=== PATIENT | male | born 1970 | race Caucasian/White ===

== ENCOUNTER → 2018-02-25 | Outpatient (CLI) | payer BC ==
--- NOTE | 2018-02-25 12:29 | DIAGNOSTIC IMAGING REPORT ---
CHEST 2 VIEWS ROUTINE HISTORY: 47 years-old Male R05 [id number] acute cough COMPARISON: None available TECHNIQUE: PA and lateral views of the chest FINDINGS: Cardiac mediastinal and hilar silhouettes are within normal limits. No pneumothorax, pleural effusion, focal airspace consolidation or overt pulmonary edema. Bones of the chest appear grossly intact. IMPRESSION: No acute process. The above report was generated using voice recognition software. It may contain grammatical, syntax or spelling errors. Electronically signed by: Diallo Champion M.D. 02/25/2018 12:27 PM Dictated Date/Time: 02/25/2018 12:27 PM
== END | disposition home or self-care (01) ==
LOC: C.RAD1850 12:01
PROVIDERS: ATTEND Internal Medicine Pulmonary Disease
DX: R05 Cough (principal)

== ENCOUNTER 2024-10-30 16:17 | Inpatient (IN) ==
[2024-10-30 16:55] LABS: Basophils # (auto) 0.08 K/uL (0.00-0.20); Basophils % (auto) 0.4 %; Eosinophils # (auto) 0.23 K/uL (0.00-0.50); Eosinophils % (auto) 1.1 %; Hematocrit (blood only) 33.6 % (37.0-47.0); Hemoglobin 11.2 g/dl (12.0-16.0); Immature Granulocytes # (auto) 0.17 K/uL (0.01-0.20); Immature Granulocytes % (auto) 0.8 %; Lymphocytes # (auto) 3.32 K/uL (1.20-3.40); Lymphocytes % (auto) 15.9 %; Mean Corpuscular Hemoglobin 27.9 pg (25.0-34.0); Mean Corpuscular Hgb Conc 33.3 g/dL (32.0-36.0); Mean Corpuscular Volume 83.8 fL (80.0-100.0); Mean Platelet Volume 10.1 fL (9.4-12.4); Monocytes # (auto) 1.61 K/uL (0.11-0.59); Monocytes % (auto) 7.7 %; Neutrophils % (auto) 74.1 %; Platelet Count 404 K/uL (130-400); RDW Coefficient of Variation 14.9 % (11.5-14.5); RDW Standard Deviation 45.8 fL (36.4-46.3); Red Blood Count 4.01 M/uL (4.20-5.40); White Blood Count 20.91 K/ul (4.8-10.8)
[2024-10-30 17:14] LABS: Alanine Aminotransferase 18 U/L (7-52); Albumin Globulin Ratio 1.5 (0.9-2); Albumin Level 4.1 gm/dl (3.4-5.0); Alkaline Phosphatase 72 U/L (34-104); Anion Gap 10 (3-11); Aspartate Aminotransferase 15 U/L (13-39); BUN Creatinine Ratio 19.4 (10-20); Blood Urea Nitrogen 12 mg/dl (6-23); Calcium 8.9 mg/dl (8.6-10.3); Carbon Dioxide 23 mmol/L (21-32); Chloride 103 mmol/L (98-107); Globulin 2.7 gm/dl (2.5-4.0); Glucose 210 mg/dl (70-99(Fasting)); Potassium 3.5 mmol/L (3.5-5.1); Sodium 136 mmol/L (136-145); Total Protein 6.8 gm/dl (6.0-8.3)
[2024-10-30 17:19] LABS: Troponin I High Sensitivity 3.8 pg/ml (0-14)
[2024-10-30 17:24] LABS: INR 0.9 (0.9-1.1); Partial Thromboplastin Ratio 0.8; Partial Thromboplastin Time 22 Seconds (21-31); Prothrombin Time 10.3 Seconds (9.0-12.0)
--- NOTE | 2024-10-30 17:43 | Emergency Department Note ---
Impression & Plan Abnormal vaginal bleeding, Syncope, Anemia ED Provider Note ED Provider Note NAME: DENIA REYES AGE:53 SEX: Female : 1970 ARRIVES VIA: Private vehicle INFORMANT: Patient ED PROVIDER(s): Honey Pierre DO CHIEF COMPLAINT: Persistent vaginal bleeding, syncope HPI: This is a 53-year-old female who presents emergency ferment due to concern for ongoing vaginal bleeding and a syncopal event today at home. Patient was seen and evaluated here yesterday. Patient originally had been scheduled with Dr. Woodard of [facility] for a D&C however anesthesia would not clear her due to questionable neck problems and required she get an outpatient MRI. This is scheduled for Saturday. Patient was complicated ongoing medical problems that she states no one can figure out why she has ongoing pain and she has been seen by several specialists including rheumatology. Patient states she has been feeling weak since the abnormal vaginal bleeding started the beginning of the week. She states she is passing clots the size of her fist. She states she does have lower abdominal pain however now since the episode of passing out at home also has pain to her right neck and right shoulder. She states she was standing at the time talking with a friend and began to feel weak, lightheaded, and nauseated and the next thing she knew she was waking up on the floor. Friend at bedside states she lost consciousness, fell into a door before hitting the ground, and was unresponsive for approximately 1 minute. No seizure-like activity noted. No cyanosis. Patient states she did have a little bit to eat today, and a check of her blood sugar initially was reassuring. She states she does have a history of vagally mediated problems, but is never passed out before. She has previously had a cardiac evaluation with Dr. Evans that was reassuring. She did have a normal bowel movement this morning, no change in urine, no fevers or chills. Patient also states her tongue feels numb on the left. She denies tasting any blood or noting any chipped or broken teeth following the fall. PAST MEDICAL HISTORY:See Below PAST SURGICAL HISTORY:See Below FAMILY HISTORY:See Below SOCIAL HISTORY:See Below HOME MEDICATIONS:See Below ALLERGIES:See Below VITALS:See Below PHYSICAL EXAMINATION: GENERAL: alert, well appearing, well nourished, no distress, non-toxic HEAD: nc/at, no evidence of facial trauma EYE EXAM: normal conjunctiva, PERRL and EOM's grossly intact OROPHARYNX: no exudate, no erythema, lips, buccal mucosa, and tongue normal and mucous membranes are moist NECK: supple, no nuchal rigidity, no adenopathy, non-tender LUNGS: Clear to auscultation. Normal chest wall mechanics, no w/r/r HEART: no murmurs, S1 normal and S2 normal ABDOMEN: abdomen soft, non-tender, normo-active bowel sounds, no masses, no rebound or guarding. BACK: Back is symmetrical on inspection and there is no deformity, no midline tenderness, no CVA tenderness. SKIN: no rashes, petechiae, orbruising UPPER EXTREMITIES: upper extremities are grossly normal. FROM, nml pulses b/l. No evidence of trauma or deformity. LOWER EXTREMITIES: No pitting edema. FROM, nml pulses b/l. NEURO EXAM: Normal sensorium, cranial nerves II-XII grossly intact, normal speech, no facial droop,nogross weakness of arms, no gross weakness of legs. Gross sensation intact. No ataxia. Vital Signs: reviewed and remarkable Differential Diagnosis: vasovagal event, infection, hypoglycemia, electrolyte abnormalities, toxidrome, substance abuse, dysrhythmia, ACS, as well as others were entertained. MEDICAL DECISION MAKING: This is a 53-year-old female who presents emergency department due to concern for syncopal event the day as well as persistent dizziness and weakness in the setting of ongoing vaginal bleeding. Patient previously seen and evaluated here for vaginal bleeding and did have ultrasound and pelvic exam performed. Case was discussed with [facility] and patient refused their initial recommendation of Aygestin. Patient was previously scheduled to have a D&C however required further evaluation prior to anesthesia clearance. Patient continues to have ongoing bleeding and presents to the ER today following a syncopal event at home. Labs drawn and sent, IV established, EKG and xrays performed at bedside interpreted me and patient monitored on telemetry. She was sent for CT of the head and C-spine to rule out traumatic injury due to complaints of pain following the event. I discussed all results with her at bedside. Patient's H&H is downtrending compared to those yesterday. Patient was initially tachycardic however improved here and was given a liter of IV fluids and tolerated p.o. Patient was persistently weak, dizzy, and off balance when trying to stand and go to the bathroom. Repeat H&H and repeat troponin drawn and sent after several hours of monitoring. No ectopy or dysrhythmia noted. Repeat troponin negative, and H&H still downtrending. Case discussed again via [place] text with on-call [facility]. No indication for blood transfusion at this time and no indication for more urgent operative intervention. Patient continues to decline Aygestin recommendation. Due to concern for persistent orthostatic symptoms and worsening anemia, case discussed with the hospitalist team additionally. At this time I have a low suspicion for any occult traumatic injury related to the fall that occurred during her syncopal event. I do not suspect occult cardiac etiology. I suspect her syncopal event was likely orthostatic and vasovagal in nature. Patient uncomfortable returning home due to persistent symptoms despite reporting that her bleeding seem to be slowing while monitored here in the emergency department. Consultation(s): 2319: Discussed with Dr. Burns, [facility], via [place] text. 2344: Discussed with Dr. Roe, [facility] hospitalist team, for additional evaluation and management. ER Treatment Provided: See below Diagnostics Interpreted By Me: -ECG: Sinus tachycardia 115, normal axis, normal intervals, no acute ST/T wave changes -Cardiac Monitoring: An order was placed for continuous cardiac monitoring. The monitor shows a rate of 102 with sinus tachycardia rhythm. -Laboratory studies: As stated above and show below. -Imaging studies: ct head: no ich Triage Nursing Note Reviewed Prior/Outside Records Reviewed -prior pelvic ultrasound reviewed Past Med/Surg History Problem List (Updated 11/01/24 @ 01:14 by Honey Pierre DO) Anemia (Acute) Acute blood loss anemia Syncope (Acute) Abnormal vaginal bleeding (Acute) Dysfunctional uterine bleeding (Acute) Encounter for pre-operative examination Pre-diabetes Dyslipidemia Migraines Jasmeet's disease (Chronic) Hypothyroidism (Chronic) Palpitations Endometriosis (Acute) GINGER (generalized anxiety disorder) (Acute) Hypertension (Acute) Gastric reflux Medical History Rectocele w/"slight" uterine prolapse Neck problem see below in plan Mast cell activation syndrome Dx by [employer], reports intermittent episodes without clear trigger of HTN (up to 200/150 per pt), tachycardia, nausea, and dizziness lasting 15 minutes-3 hours-notes improvement since starting current combination of supplements Family history of pseudocholinesterase deficiency maternal aunt; pt has not been tested or had any reactions Hypertension controlled, stable per pt Gastric reflux controlled, stable per pt Palpitations occasional, chronic GINGER (generalized anxiety disorder) Pre-diabetes diet History of tachycardia cardiac work up negative - still gets occasional - unsure of cause - follows with Cristina Jasmeet's disease Hypothyroidism Hx of migraines occasional / varies Surgical History Hx of wisdom tooth extraction Hx of esophagogastroduodenoscopy Hx of colonoscopy S/P LEEP of cervix S/P ovarian cystectomy History of laparoscopy Hx of tonsillectomy (1999) Family History Mother COPD (chronic obstructive pulmonary disease) Lung cancer Rheumatoid arthritis Hypertension Aortic aneurysm Father , 65 of [place] Heart disease Hypertension Migraines Myocardial infarction Aunt Pseudocholinesterase deficiency Other No pertinent family history Thyroid disease Social History Smoking Status: Never smoker Second Hand Exposure: Yes (hx); Do You Dip or Chew Tobacco: No; Hx Alcohol Use: Yes Alcohol type: wine Alcohol Intake Frequency Comment: Occasional Hx Substance Use: No Preferred Language: Yakut Communication Ability: Effective Web Site Developer Required: No Beliefs That Will Affect Care: None marital status: Current Living Situation: Spouse current occupational status: employed 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 Verified 10/30/24 23:43 happened in childhood polymyxin B Allergy Unknown unkown. Verified 10/30/24 23:43 happened in childhood tetracycline Allergy Unknown Unknown Verified 10/30/24 23:43 Serotonin 5HT-3 Antagonists AdvReac Severe HYPERACTIVI Verified 10/31/24 00:36 TY succinylcholine AdvReac Severe STRONG Verified 10/30/24 23:43 [From Anectine] FAMILY HX--INTOLERANT-CAUSED TEMPORARY PARALYSIS Home Meds Home Medications Medication Instructions Recorded Confirmed alprazolam 0.25 mg tablet (Xanax) 0.25 mg PO BID PRN anxiety 07/07/19 10/30/24 fexofenadine 60 mg tablet (Rosa 60 mg PO Q12H PRN Congestion 06/07/22 10/30/24 Allergy) vitamin D3 25 mcg (1,000 unit)-vit 1 tab PO QAM 12/23/23 10/26/24 K2 90 mcg disintegrating tablet Active B12 Folate 1 tab PO QAM 07/15/24 10/26/24 Dimethyl Glycine 1 tab PO QAM 07/15/24 10/26/24 Gi Complete 1 packet PO DAILY 07/15/24 10/26/24 amlodipine 5 mg tablet 7.5 mg PO QPM 07/15/24 10/30/24 Probzyme 2 tab PO UD PRN Constipation 10/16/24 10/26/24 Relax 2 - 4 tab PO DAILY PRN muscle 10/16/24 10/26/24 spasms Spm Liquid 1 tbsp PO QAM 10/16/24 10/26/24 diphenhydramine HCl 25 mg capsule 25 mg PO TID PRN histamine reaction 10/16/24 10/30/24 (Benadryl) levothyroxine 50 mcg tablet 50 mcg PO QAM 10/16/24 10/30/24 quercetin 1 tab PO QAM 10/16/24 10/26/24 omega 5-pds-noh-fish oil 900 1 cap PO DAILY 10/26/24 10/30/24 mg-1,400 mg capsule,delayed release gpenodj-olrtarflnfelw-pmuocfko 250 1 tab PO Q6H PRN HEADACHES 10/30/24 10/30/24 mg-250 mg-65 mg tablet (Excedrin Migraine) Previous Rx's Medication Instructions Recorded meclizine 12.5 mg tablet 12.5 mg PO TID PRN dizziness #20 06/02/24 tabs Results & Data (ED) Vital Signs Vital Signs - 24 hr 10/30/24 16:22 10/30/24 16:59 10/30/24 16:59 Temperature 36.7 C Temperature Source Temporal Artery Scan Pulse Rate 135 H Respiratory Rate 22 Blood Pressure 138/89 Blood Pressure Mean 105 Pulse Oximetry 100 100 Oxygen Delivery Method Room Air Room Air Room Air Sepsis Recent Fever Within 48 Hours No Sepsis New/Unexplained Change in Mental Status N/A Sepsis Action Taken by Nursing Adv Provider Notified Laboratory Data 10/31/24 20:54 10/30/24 16:28 Lab Results 10/30/24 10/30/24 Range/Units 16:28 21:20 WBC 20.91 H 19.91 H (4.8-10.8) K/ul RBC 4.01 L 3.67 L (4.20-5.40) M/uL Hgb 11.2 L 10.2 L (12.0-16.0) g/dl Hct 33.6 L 31.2 L (37.0-47.0) % MCV 83.8 85.0 (80.0-100.0) fL MCH 27.9 27.8 (25.0-34.0) pg MCHC 33.3 32.7 (32.0-36.0) g/dL RDW Std Deviation 45.8 46.8 H (36.4-46.3) fL RDW Coeff of [place] 14.9 H 15.0 H (11.5-14.5) % Plt Count 404 H 345 (130-400) K/uL MPV 10.1 10.7 (9.4-12.4) fL Immature Gran % (Auto) 0.8 % Neut % (Auto) 74.1 % Lymph % (Auto) 15.9 % [place] % (Auto) 7.7 % Eos % (Auto) 1.1 % Baso % (Auto) 0.4 % Neut # (Auto) 15.50 H (1.40-6.50) K/uL Lymph # (Auto) 3.32 (1.20-3.40) K/uL [place] # (Auto) 1.61 H (0.11-0.59) K/uL Eos # (Auto) 0.23 (0.00-0.50) K/uL Baso # (Auto) 0.08 (0.00-0.20) K/uL Immature Gran # (Auto) 0.17 (0.01-0.20) K/uL PT 10.3 (9.0-12.0) Seconds INR 0.9 (0.9-1.1) APTT 22 (21-31) Seconds PTT Ratio 0.8 Sodium 136 (136-145) mmol/L Potassium 3.5 (3.5-5.1) mmol/L Chloride 103 (98-107) mmol/L Carbon Dioxide 23 (21-32) mmol/L Anion Gap 10 (3-11) BUN 12 (6-23) mg/dl Creatinine 0.62 (0.6-1.2) mg/dl Est Cr Clr Drug Dosing Not Reportable eGFR 107.75 BUN/Creatinine Ratio 19.4 (10-20) Glucose 210 H (70-99(Fasting)) mg/dl Calcium 8.9 (8.6-10.3) mg/dl Total Bilirubin 1.0 (0.2-1.0) mg/dl AST 15 (13-39) U/L ALT 18 (7-52) U/L Alkaline Phosphatase 72 (34-104) U/L Troponin I High Sens 3.8 5.2 (0-14) pg/ml Total Protein 6.8 (6.0-8.3) gm/dl Albumin 4.1 (3.4-5.0) gm/dl Globulin 2.7 (2.5-4.0) gm/dl Albumin/Globulin Ratio 1.5 (0.9-2) Urine Color [place] Urine Appearance Clear (Clear) Urine pH 8.0 H (4.5-7.5) Ur Specific [place] 1.013 (1.000-1.030) Urine Protein Negative (Negative) Urine Glucose (UA) Negative (Negative) Urine Ketones Negative (Negative) Urine Blood 3+ H (Negative) Urine Nitrite Negative (Negative) Urine Bilirubin Negative (Negative) Urine Urobilinogen Negative (Negative) Ur Leukocyte Esterase Negative (Negative) Urine WBC (Auto) 0-5 (0-5) /hpf Urine RBC (Auto) >20 H (0-2) /hpf U Hyaline Cast (Auto) 0-2 (0-2) /lpf U Epithel Cells (Auto) 0-2 (0-2) /hpf Urine Bacteria (Auto) None Seen (None Seen) Administered Medications Alprazolam (Alprazolam 0.25 Mg Tablet) 0.25 mg PO BID PRN PRN Reason: anxiety Stop: 11/30/24 02:49 Last Admin: 10/31/24 19:25 Dose: 0.25 mg Documented By: [id number] Amlodipine Besylate (Amlodipine Besylate 5 Mg Tab) 7.5 mg PO QPM DONALD Stop: 11/30/24 20:59 Last Admin: 10/31/24 21:53 Dose: 7.5 mg Documented By: ANTONIO Sodium Chloride (Nss) 1,000 mls @ 60 mls/hr IV .[id number] DONALD Stop: 11/01/24 12:44 Last Admin: 10/31/24 15:38 Dose: 60 mls/hr Documented By: ANTONIO Levothyroxine Sodium (Levothyroxine Sodium 50 Mcg Tablet) 50 mcg PO DAILYBB DONALD Stop: 11/30/24 06:29 Last Admin: 10/31/24 07:45 Dose: 50 mcg Documented By: PURVI Norethindrone (Norethindrone 5 Mg Tab) 5 mg PO QID DONALD Stop: 11/30/24 08:59 Last Admin: 10/31/24 21:53 Dose: 5 mg Documented By: Admin: 10/31/24 18:38 Dose: 5 mg Documented By: Admin: 10/31/24 13:10 Dose: 5 mg Documented By: Admin: 10/31/24 07:46 Dose: 5 mg Documented By: PURVI Discontinued Medications Amlodipine Besylate (Amlodipine Besylate 5 Mg Tab) 7.5 mg PO NOW STA Stop: 10/31/24 00:36 Last Admin: 10/31/24 00:39 Dose: 7.5 mg Documented By: MICHELLE Diphenhydramine HCl (Diphenhydramine 50 Mg/Ml Vial) 12.5 mg IV NOW STA Stop: 10/30/24 23:29 Last Admin: 10/30/24 23:41 Dose: 12.5 mg Documented By: MICHELLE Sodium Chloride (Nss) 1,000 mls @ 999 mls/hr IV .Q1H1M ONE Stop: 10/30/24 18:25 Last Infusion: 10/30/24 20:57 Dose: Infused Documented By: Admin: 10/30/24 17:54 Dose: 999 mls/hr Documented By: ALTHEA Ondansetron HCl (Ondansetron Inj 2 Mg/Ml 2 Ml Vial) 4 mg IV NOW STA Stop: 10/30/24 21:20 Last Admin: 10/30/24 21:26 Dose: 4 mg Documented By: JAYASHREEW Discharge Plan Visit Data Chief Complaint: Shortness of Breath/Dyspnea Stated Complaint: SYNCOPE, BLOOD CLOTS, SOB,NAUSEA ED Provider: Honey Pierre Discharge Problem: Abnormal vaginal bleeding, Syncope, Anemia Patient Disposition: Admitted As Inpatient Discharge Instructions Interventions: ED Discharge Assessment Last Done: 10/31/24 02:50
[2024-10-30] MEDS: SODIUM CHLORIDE 0.9% 1,000 ML IV ONE (17:54)
--- NOTE | 2024-10-30 18:41 | XRay Report ---
Chest radiograph, one view History: Chest pain Comparison: 06/02/2024 Findings: Single AP view of the chest performed. No focal consolidation or pleural effusion. No pneumothorax. The cardiomediastinal silhouette is within normal limits. Normal pulmonary vascularity. No evidence for lymphadenopathy. No visualized bony or soft tissue abnormality. Impression: Normal chest radiograph Electronically signed by Clinton Mcgarry 10-30-2024 6:40 PM
--- NOTE | 2024-10-30 18:45 | XRay Report ---
Study: Right humerus 2 view History: Pain Comparison: None Findings: There is no acute fracture or dislocation. Alignment is anatomic. Joint spaces are well maintained. There is no joint effusion or significant soft tissue swelling. Bone mineralization is normal. Impression: No acute bony abnormality Electronically signed by Clinton Mcgarry 10-30-2024 6:44 PM
--- NOTE | 2024-10-30 19:27 | CT Scan Report ---
EXAM: CT cervical spine wo con CLINICAL HISTORY: FALL, SYNCOPE EK/EB/JMP TECHNIQUE: CT scan of the cervical spine was performed without the administration of intravenous contrast. Contiguous axial images were obtained from the skull base to the upper thoracic spine. One of the following dose reduction techniques was utilized for this exam. Automated exposure control, adjustment of the mA and/or kV according to patient size, and use of iterative reconstruction. COMPARISON: No previous studies are available for comparison. FINDINGS: Vertebrae: The vertebral bodies are normal in height and alignment. No evidence of acute fracture or dislocation. The cortical and trabecular bone patterns are normal. No signs of lytic or sclerotic lesions. Normal configuration of the posterior elements. Intervertebral Discs: The intervertebral disc spaces are preserved. No evidence of significant disc bulging or herniation. No calcifications or ossifications were noted within the discs. Facet Joints: C5-6 right and C6-7 left facet arthropathy. Neural Foramina: The neural foramina are patent bilaterally at all levels. No evidence of foraminal narrowing or nerve root compression. Prevertebral Soft Tissues: The prevertebral soft tissues are normal in thickness without evidence of mass or abnormal fluid collection. Additional Findings: Right sphenoidal sinusitis. IMPRESSION: 1. C5-6 right and C6-7 left facet arthropathy. 2. Right sphenoidal sinusitis. 3. Correlate with clinical findings. Electronically signed by Jorge Tomlin 10-30-2024 7:27 PM
--- NOTE | 2024-10-30 19:39 | CT Scan Report ---
EXAM: CT head/brain wo con CLINICAL HISTORY: FALL, SYNCOPE EK/EB/JMP/ TECHNIQUE: An axial non-contrast CT scan of the brain was performed from the skull base to the high parietal region. One of the following dose reduction techniques were utilized for this exam: Automated exposure control, adjustment of the mA and/or kV according to patient size, use of iterative reconstruction. COMPARISON: None. FINDINGS: Brain Parenchyma: Normal attenuation of the cerebral hemispheres, cerebellum, and brainstem. No evidence of acute infarct, hemorrhage, or mass effect. No abnormal areas of hypo- or hyperattenuation. Ventricular System: Ventricles are normal in size and configuration. No evidence of hydrocephalus or ventricular enlargement. Subarachnoid Spaces: Normal sulci and cisterns. No evidence of subarachnoid hemorrhage or extra-axial fluid collections. Cerebellum and Brainstem: Normal size and signal. No masses, lesions, or areas of abnormal signal. Orbits: Normal appearance of the globes, optic nerves, and extraocular muscles. No evidence of orbital masses or abnormal signal. Sinuses: Right sphenoidal sinusitis. Mastoid Air Cells: Clear mastoid air cells. No evidence of mastoiditis. Skull: Normal skull morphology. IMPRESSION: 1. No definite acute intracranial pathology. 2. Right sphenoid sinusitis. 3. Correlate with clinical findings. Electronically signed by Jorge Tomlin 10-30-2024 7:37 PM
[2024-10-30] MEDS: ONDANSETRON INJ 2 MG/ML 2 ML VIAL IV STA (21:26)
[2024-10-30 21:40] LABS: Appearance Urine Clear (Clear); Bacteria Urine Automated None Seen (None Seen); Bilirubin Urine Negative (Negative); Blood Urine 3+ (Negative); Cast Urine Automated 0-2 /lpf (0-2); Color Urine Orange; Epithelial Cell Urine Auto 0-2 /hpf (0-2); Glucose Urine UA Negative (Negative); Ketones Urine Negative (Negative); Leukocyte Esterase Urine Negative (Negative); Nitrite Urine Negative (Negative); Protein Urine Negative (Negative); RBC Urine Automated >20 /hpf (0-2); Specific Gravity Urine 1.013 (1.000-1.030); Urobilinogen Urine Negative (Negative); WBC Urine Automated 0-5 /hpf (0-5)
[2024-10-30 22:04] LABS: Hematocrit (blood only) 31.2 % (37.0-47.0); Hemoglobin 10.2 g/dl (12.0-16.0); Mean Corpuscular Hemoglobin 27.8 pg (25.0-34.0); Mean Corpuscular Hgb Conc 32.7 g/dL (32.0-36.0); Mean Platelet Volume 10.7 fL (9.4-12.4); Platelet Count 345 K/uL (130-400); RDW Standard Deviation 46.8 fL (36.4-46.3); Red Blood Count 3.67 M/uL (4.20-5.40); White Blood Count 19.91 K/ul (4.8-10.8)
[2024-10-30] MEDS: diphenhydrAMINE 50 MG/ML VIAL IV STA (23:41)
[2024-10-31] MEDS: amLODIPine BESYLATE 5 MG TAB PO STA (00:39)
--- NOTE | 2024-10-31 00:39 | History & Physical Report ---
Date of Service October 31, 2024 Assessment & Plan (1) Abnormal vaginal bleeding: Plan: 53yo female with dysfunctional uterine bleeding. She had a pelvic ultrasound performed on 10/29/24 which revealed likely fibroid, thickened endometrium as well as possible clots. Patient has been followed by Gynecology - is planned to have a D&C and hysteroscopy performed this week. Patient reports her bleeding is starting to slow. Her Hgb has decreased from 13.9 on 10/29/23 --> 10.2 today. She was again offered Aygestin for the bleeding - reports that she does not respond well to hormones and would like to avoid this option. -Observation to medical with telemetry -Continue to monitor uterine bleeding - daily CBC - transfuse for ongoing bleed, symptomatic anemia or Hgb < 7 -Gynecology consultation appreciated -Will keep patient NPO for now in the event that she could possibly have procedure in AM -Tylenol PRN pain (2) Hypertension: Plan: Blood pressure at goal -Continue Amlodipine 7.5mg po qPM -Monitor BP closely (3) Hypothyroidism: Plan: Chronic -Continue Synthroid 50mcg po daily History of Present Illness Chief Complaint: Vaginal bleeding Primary Care Provider: Shelly Gore Brandy Noe is a 53yo female with history of HTN presenting with vaginal bleeding. Patient with normal, regular periods until last year - bleeding became quite heavy and irregular. She reports bleeding fairly constantly from May --> July 2024. She was seen by Gynecology on 10/26/24 and had a Pap smear performed. She reports developing recurrence of bleeding following the Pap smear. Over the last several days she has been having heavy vaginal bleeding. She has been passing large number of clots - she reports being as big as her fist. On 10/28/23 she reports bleeding through a thick pad and a Depends diaper approximately every hour. She was seen in the ER on 10/29/24 with these complaints. Her Hgb=13.9 at that time and Hct=41.6. She was offered Aygestin taper which she refused and was ultimately discharged home. She reports her bleeding has continued. Tonight she stood up from the couch and became dizzy, nauseated and passed out. She denies chest pain, SOB or dizziness at rest but does become dizzy with near syncope with positional changes. In the ER she is afebrile, HD stable ER Course: Benadryl Allergies Allergy/AdvReac Type Severity Reaction Status Date / Time bee venom protein (honey bee) Allergy Severe ANAPHYLAXIS Verified 10/30/24 23:43 shellfish derived Allergy Severe Difficulty Verified 10/30/24 23:43 Swallowing albuterol Allergy Mild Tachycardia Verified 10/30/24 23:43 oxytetracycline Allergy Unknown unkown. Verified 10/30/24 23:43 happened in childhood polymyxin B Allergy Unknown unkown. Verified 10/30/24 23:43 happened in childhood tetracycline Allergy Unknown Unknown Verified 10/30/24 23:43 Serotonin 5HT-3 Antagonists AdvReac Severe HYPERACTIVI Verified 10/31/24 00:36 TY succinylcholine AdvReac Severe STRONG Verified 10/30/24 23:43 [From Anectine] FAMILY HX--INTOLERANT-CAUSED TEMPORARY PARALYSIS Home Medications Medication Instructions Recorded Confirmed Type alprazolam 0.25 mg tablet (Xanax) 0.25 mg PO BID PRN anxiety 07/07/19 10/30/24 History fexofenadine 60 mg tablet (Rosa 60 mg PO Q12H PRN Congestion 06/07/22 10/30/24 History Allergy) vitamin D3 25 mcg (1,000 unit)-vit 1 tab PO QAM 12/23/23 10/26/24 History K2 90 mcg disintegrating tablet meclizine 12.5 mg tablet 12.5 mg PO TID PRN dizziness #20 06/02/24 10/30/24 Rx tabs Active B12 Folate 1 tab PO QAM 07/15/24 10/26/24 History Dimethyl Glycine 1 tab PO QAM 07/15/24 10/26/24 History Gi Complete 1 packet PO DAILY 07/15/24 10/26/24 History amlodipine 5 mg tablet 7.5 mg PO QPM 07/15/24 10/30/24 History Probzyme 2 tab PO UD PRN Constipation 10/16/24 10/26/24 History Relax 2 - 4 tab PO DAILY PRN muscle 10/16/24 10/26/24 History spasms Spm Liquid 1 tbsp PO QAM 10/16/24 10/26/24 History diphenhydramine HCl 25 mg capsule 25 mg PO TID PRN histamine reaction 10/16/24 10/30/24 History (Benadryl) levothyroxine 50 mcg tablet 50 mcg PO QAM 10/16/24 10/30/24 History quercetin 1 tab PO QAM 10/16/24 10/26/24 History omega 4-suj-ujl-fish oil 900 1 cap PO DAILY 10/26/24 10/30/24 History mg-1,400 mg capsule,delayed release zazbthi-xzclvxokzsrjj-enowrxde 250 1 tab PO Q6H PRN HEADACHES 10/30/24 10/30/24 History mg-250 mg-65 mg tablet (Excedrin Migraine) Past Med/Surg History Problem List Syncope (Acute) Abnormal vaginal bleeding (Acute) Dysfunctional uterine bleeding (Acute) Encounter for pre-operative examination Pre-diabetes Dyslipidemia Migraines Jasmeet's disease (Chronic) Hypothyroidism (Chronic) Palpitations Endometriosis (Acute) GINGER (generalized anxiety disorder) (Acute) Hypertension (Acute) Gastric reflux Medical History Rectocele w/"slight" uterine prolapse Neck problem see below in plan 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, reports intermittent episodes without clear trigger of HTN (up to 200/150 per pt), tachycardia, nausea, and dizziness lasting 15 minutes-3 hours-notes improvement since starting current combination of supplements Family history of pseudocholinesterase deficiency maternal aunt; pt has not been tested or had any reactions Hypertension controlled, stable per pt Gastric reflux controlled, stable per pt Palpitations occasional, chronic GINGER (generalized anxiety disorder) Pre-diabetes diet History of tachycardia cardiac work up negative - still gets occasional - unsure of cause - follows with Cristina Jasmeet's disease Hypothyroidism Hx of migraines occasional / varies Surgical History Hx of wisdom tooth extraction Hx of esophagogastroduodenoscopy Hx of colonoscopy S/P LEEP of cervix S/P ovarian cystectomy History of laparoscopy Hx of tonsillectomy (1999) Family History Mother COPD (chronic obstructive pulmonary disease) Lung cancer Rheumatoid arthritis Hypertension Aortic aneurysm Father , 65 of [place] Heart disease Hypertension Migraines Myocardial infarction Aunt Pseudocholinesterase deficiency Other No pertinent family history Thyroid disease Social History Smoking Status: Never smoker Second Hand Exposure: Yes (hx); Do You Dip or Chew Tobacco: No; Hx Alcohol Use: Yes Alcohol type: wine Alcohol Intake Frequency Comment: Occasional Hx Substance Use: No Preferred Language: Filipino Communication Ability: Effective Community Arts Worker Required: No Beliefs That Will Affect Care: None marital status: Current Living Situation: Spouse current occupational status: employed 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 Other Information That Helps Us Care for You: No Feels Safe at Home: Yes Safety Concerns: Feels Safe At This Time Assistive Devices: Contacts and Glasses Review of Systems Review of Systems: All systems reviewed & are unremarkable except as noted in HPI & below Physical Exam Physical Exam: General: patient resting comfortably, NAD, non-toxic in appearance, AA&O x 4 Skin: warm, dry, intact, no rashes or lesions HEENT: NC/AT, PERRL, EOMI, anicteric sclera, conjunctiva without injection, external ear normal to inspection and nontender, nares patent, moist mucus membranes, dentition intact, no oropharyngeal lesions, neck supple, trachea midline, no LAD, no thyromegaly, no JVD Heart: +S1/S2, regular, no m/r/g Lungs: equal air entry bilaterally, no rales/rhonchi/wheezes Abd: +BS, soft, NT/ND, no masses/organomegaly/ascites Ext: warm, 2+ pulses in UE/LE bilaterally, no clubbing/cyanosis or edema Neuro: nonfocal, patient AA&O x 4, speech intact, no facial droop, moving all extremities on command with equal strength 5/5 Results & Data Results & Data Vital Signs (Past 12 Hours) Vital Signs Temp Pulse Pulse Resp BP BP Pulse Ox 10/31/24 00:15 86 16 125/75 95 10/30/24 23:33 89 12 133/72 97 10/30/24 22:30 89 19 139/89 97 10/30/24 22:12 95 H 17 140/81 97 10/30/24 21:58 90 10/30/24 21:30 91 H 13 134/84 97 10/30/24 21:18 105 H 12 154/109 H 99 10/30/24 21:00 92 H 12 138/88 10/30/24 20:30 105 H 13 155/105 H 98 10/30/24 20:15 94 H 15 142/88 H 98 10/30/24 19:33 96 H 15 143/87 H 98 10/30/24 19:10 96 H 20 160/91 H 98 10/30/24 18:30 94 H 12 172/100 H 100 10/30/24 18:18 100 10/30/24 17:53 101 H 10/30/24 17:39 103 H 18 98 10/30/24 16:59 100 10/30/24 16:59 10/30/24 16:28 101 H 22 100 10/30/24 16:22 36.7 C 135 H 22 138/89 100 O2 Del Method 10/31/24 00:15 10/30/24 23:33 10/30/24 22:30 10/30/24 22:12 10/30/24 21:58 10/30/24 21:30 10/30/24 21:18 10/30/24 21:00 10/30/24 20:30 10/30/24 20:15 10/30/24 19:33 10/30/24 19:10 Room Air 10/30/24 18:30 10/30/24 18:18 10/30/24 17:53 10/30/24 17:39 10/30/24 16:59 Room Air 10/30/24 16:59 Room Air 10/30/24 16:28 Room Air 10/30/24 16:22 Room Air Laboratory Results Laboratory Results WBC 19.91 K/ul (4.8-10.8) H 10/30/24 21:20 RBC 3.67 M/uL (4.20-5.40) L 10/30/24 21:20 Hgb 10.2 g/dl (12.0-16.0) L 10/30/24 21:20 Hct 31.2 % (37.0-47.0) L 10/30/24 21:20 MCV 85.0 fL (80.0-100.0) 10/30/24 21:20 MCH 27.8 pg (25.0-34.0) 10/30/24 21:20 MCHC 32.7 g/dL (32.0-36.0) 10/30/24 21:20 RDW Std Deviation 46.8 fL (36.4-46.3) H 10/30/24 21:20 RDW Coeff of [place] 15.0 % (11.5-14.5) H 10/30/24 21:20 Plt Count 345 K/uL (130-400) 10/30/24 21:20 MPV 10.7 fL (9.4-12.4) 10/30/24 21:20 Immature Gran % (Auto) 0.8 % 10/30/24 16:28 Neut % (Auto) 74.1 % 10/30/24 16:28 Lymph % (Auto) 15.9 % 10/30/24 16:28 [place] % (Auto) 7.7 % 10/30/24 16: Eos % (Auto) 1.1 % 10/30/24 16: Baso % (Auto) 0.4 % 10/30/24 16:28 Neut # (Auto) 15.50 K/uL (1.40-6.50) H 10/30/24 16:28 Lymph # (Auto) 3.32 K/uL (1.20-3.40) 10/30/24 16:28 [place] # (Auto) 1.61 K/uL (0.11-0.59) H 10/30/24 16:28 Eos # (Auto) 0.23 K/uL (0.00-0.50) 10/30/24 16: Baso # (Auto) 0.08 K/uL (0.00-0.20) 10/30/24 16: Immature Gran # (Auto) 0.17 K/uL (0.01-0.20) 10/30/24 16: PT 10.3 Seconds (9.0-12.0) 10/30/24 16: INR 0.9 (0.9-1.1) 10/30/24 16: APTT 22 Seconds (21-31) 10/30/24 16: PTT Ratio 0.8 10/30/24 16: Sodium 136 mmol/L (136-145) 10/30/24 16: Potassium 3.5 mmol/L (3.5-5.1) 10/30/24 16: Chloride 103 mmol/L (98-107) 10/30/24 16:28 Carbon Dioxide 23 mmol/L (21-32) 10/30/24 16:28 Anion Gap 10 (3-11) 10/30/24 16:28 BUN 12 mg/dl (6-23) 10/30/24 16: Creatinine 0.62 mg/dl (0.6-1.2) 10/30/24 16: Est Cr Clr Drug Dosing Not Reportable 10/30/24 16: eGFR 107.75 10/30/24 16:28 BUN/Creatinine Ratio 19.4 (10-20) 10/30/24 16: Glucose 210 mg/dl (70-99(Fasting)) H 10/30/24 16: Calcium 8.9 mg/dl (8.6-10.3) 10/30/24 16: Total Bilirubin 1.0 mg/dl (0.2-1.0) 10/30/24 16: AST 15 U/L (13-39) 10/30/24 16:28 ALT 18 U/L (7-52) 10/30/24 16:28 Alkaline Phosphatase 72 U/L (34-104) 10/30/24 16:28 Troponin I High Sens 5.2 pg/ml (0-14) 10/30/24 21:20 Total Protein 6.8 gm/dl (6.0-8.3) 10/30/24 16: Albumin 4.1 gm/dl (3.4-5.0) 10/30/24 16: Globulin 2.7 gm/dl (2.5-4.0) 10/30/24 16: Albumin/Globulin Ratio 1.5 (0.9-2) 10/30/24 16:28 Urine Color [employer] 10/30/24 21:20 Urine Appearance Clear (Clear) 10/30/24 21: Urine pH 8.0 (4.5-7.5) H 10/30/24 21:20 Ur Specific [place] 1.013 (1.000-1.030) 10/30/24 21:20 Urine Protein Negative (Negative) 10/30/24 21:20 Urine Glucose (UA) Negative (Negative) 10/30/24 21: Urine Ketones Negative (Negative) 10/30/24 21:20 Urine Blood 3+ (Negative) H 10/30/24 21:20 Urine Nitrite Negative (Negative) 10/30/24 21:20 Urine Bilirubin Negative (Negative) 10/30/24 21:20 Urine Urobilinogen Negative (Negative) 10/30/24 21:20 Ur Leukocyte Esterase Negative (Negative) 10/30/24 21:20 Urine WBC (Auto) 0-5 /hpf (0-5) 10/30/24 21:20 Urine RBC (Auto) >20 /hpf (0-2) H 10/30/24 21:20 U Hyaline Cast (Auto) 0-2 /lpf (0-2) 10/30/24 21:20 U Epithel Cells (Auto) 0-2 /hpf (0-2) 10/30/24 21:20 Urine Bacteria (Auto) None Seen (None Seen) 10/30/24 21:[address] 10/30/24 17:25 EXAM: CT cervical spine wo con CLINICAL HISTORY: FALL, SYNCOPE EK/EB/JMP TECHNIQUE: CT scan of the cervical spine was performed without the administration of intravenous contrast. Contiguous axial images were obtained from the skull base to the upper thoracic spine. One of the following dose reduction techniques was utilized for this exam. Automated exposure control, adjustment of the mA and/or kV according to patient size, and use of iterative reconstruction. COMPARISON: No previous studies are available for comparison. FINDINGS: Vertebrae: The vertebral bodies are normal in height and alignment. No evidence of acute fracture or dislocation. The cortical and trabecular bone patterns are normal. No signs of lytic or sclerotic lesions. Normal configuration of the posterior elements. Intervertebral Discs: The intervertebral disc spaces are preserved. No evidence of significant disc bulging or herniation. No calcifications or ossifications were noted within the discs. Facet Joints: C5-6 right and C6-7 left facet arthropathy. Neural Foramina: The neural foramina are patent bilaterally at all levels. No evidence of foraminal narrowing or nerve root compression. Prevertebral Soft Tissues: The prevertebral soft tissues are normal in thickness without evidence of mass or abnormal fluid collection. Additional Findings: Right sphenoidal sinusitis. IMPRESSION: 1. C5-6 right and C6-7 left facet arthropathy. 2. Right sphenoidal sinusitis. 3. Correlate with clinical findings. Electronically signed by Jorge Tomlin 10-30-2024 7:27 PM Chest X-Ray 10/30/24 17:25 Chest radiograph, one view History: Chest pain Comparison: 06/02/2024 Findings: Single AP view of the chest performed. No focal consolidation or pleural effusion. No pneumothorax. The cardiomediastinal silhouette is within normal limits. Normal pulmonary vascularity. No evidence for lymphadenopathy. No visualized bony or soft tissue abnormality. Impression: Normal chest radiograph Electronically signed by Clinton Mcgarry 10-30-2024 6:[address] 10/30/24 17:25 EXAM: CT head/brain wo con CLINICAL HISTORY: FALL, SYNCOPE EK/EB/JMP/ TECHNIQUE: An axial non-contrast CT scan of the brain was performed from the skull base to the high parietal region. One of the following dose reduction techniques were utilized for this exam: Automated exposure control, adjustment of the mA and/or kV according to patient size, use of iterative reconstruction. COMPARISON: None. FINDINGS: Brain Parenchyma: Normal attenuation of the cerebral hemispheres, cerebellum, and brainstem. No evidence of acute infarct, hemorrhage, or mass effect. No abnormal areas of hypo- or hyperattenuation. Ventricular System: Ventricles are normal in size and configuration. No evidence of hydrocephalus or ventricular enlargement. Subarachnoid Spaces: Normal sulci and cisterns. No evidence of subarachnoid hemorrhage or extra-axial fluid collections. Cerebellum and Brainstem: Normal size and signal. No masses, lesions, or areas of abnormal signal. Orbits: Normal appearance of the globes, optic nerves, and extraocular muscles. No evidence of orbital masses or abnormal signal. Sinuses: Right sphenoidal sinusitis. Mastoid Air Cells: Clear mastoid air cells. No evidence of mastoiditis. Skull: Normal skull morphology. IMPRESSION: 1. No definite acute intracranial pathology. 2. Right sphenoid sinusitis. 3. Correlate with clinical findings. Electronically signed by Jorge Tomlin 10-30-2024 7:37 PM Humerus X-Ray 10/30/24 17:56 Study: Right humerus 2 view History: Pain Comparison: None Findings: There is no acute fracture or dislocation. Alignment is anatomic. Joint spaces are well maintained. There is no joint effusion or significant soft tissue swelling. Bone mineralization is normal. Impression: No acute bony abnormality Electronically signed by Clinton Mcgarry 10-30-2024 6:44 PM PG Care Time/CCT Total # of Minutes Spent Total Time Spent with Patient: Total time spent is greater than 50% in coordination of care (as documented) at patient's floor/unit and/or counseling patient: Coding Level of Care Code 82088 INT INP/OBS CARE 3/75MIN Diagnoses Abnormal vaginal bleeding N93.9 Hypertension I10 Hypothyroidism E03.9
[2024-10-31] MEDS ORDERED: ONDANSETRON INJ 2 MG/ML 2 ML VIAL IV PRN (02:50)
[2024-10-31] MEDS ORDERED: FEXOFENADINE 60 MG TAB PO PRN (02:50)
[2024-10-31] MEDS ORDERED: ACETAMINOPHEN 325 MG TAB PO PRN (02:50)
--- NOTE | 2024-10-31 03:06 | OB/GYN Consultation ---
Date of Consultation October 31, 2024 Assessment & Plan (1) Dysfunctional uterine bleeding: Plan There has essentially been no change in the pateint's overall situation other than the onset of bleeding again. h/h has dropped as noted, but may be some contribution from ifv hydration. She is resting comfortably in bed and conversing easily with me. Ultrasound is essentially unchanged, lining 10mm. Hgb has dropped from 10/9-10/10. Her vital signs are stable. Discussed that at this point in time, need to consider taking some potential risks for benefit. Aygestin is a well known and well studies progestin for this issue. Explained how the aygestin would stop the bleeding by stabilizing the lining. Discussed would not taper to off but to low dose, 1-2 daily, until her D&C. Discussed noting like Depo (and discussed the studies/meta analysis that depo does not worsen depression). Discussed lower dosing than what she took for her miscarriages. Discussed that we often keep patient's on this medication halfway as it is well tolerated and works for bleeding. Discussed that most side effects from "hormones" usually related to estrogen and she will not be getting that. Will not interefere with her thyroid or hypertension. Very well tolerated medication. And, if has an issue where better to have than in hospital. The other option is to transfuse her when her h/h drops. She would like to avoid transfusion. Discussed there is not a reason to do an emergent D&C at this point and would actually would like to avoid this and treat her medically with medication that has been proven to help with this condition. She has her MRI scheduled for [facility] and then hopefully can get D&C soon after that when cleared. Discussed that the main cause is likely perimenopausal DUB but in the work up found mass that may be contributing, but both likely causative. After long discussion , patient is agreeable to trialing aygestin. First dose being given now. Will continue to follow. Should have quantatative measurement of blood loss--weighing of pads, clots, hat in toilet to catch clots and serial h/h. Should have improvement within the first few doses. Will continue to follow. Thank you. History of Present Illness Reason for Consultation: vaginal bleeding Requesting Physician: Bhupinder Attending Physician: Susan Roe, DO History of Present Illness Patient is a [id number] known well by Dr. Cheatham in our practice. She has had vaginal bleeding since the early fall. She has an ultrasound that is consistent with an endometrial mass and has a planned d/c. However, she has a neck issue that has prevented her from getting anesthesia clearance. Please see Dr. Cheatham's notes for details. Prior to this last year, she had regular periods like clock work with normal flow. She presented to the ED last night with a syncopal episode at home. It was observed. Please see ED note for details. she does admit that she has a 2 +year history of these episodes. She continues to have vaginal bleeding. Has been to the ED twice in the last two days. Presented because of increased bleeding that started after a pap on 10/26 (bleeding had been from may--Jul but then stopped and this appears to be the first bleeding since then). hgb in 10/29 was 13 and today is 10.2. US yesterday shows a lining of 10mm. Anterior fibroid of 2cm noted, ovaries normal bilaterally. Patient was advised by Dr. Jerez who was verbally consulted at the time to start aygestin taper, however, patient declined (multiple times) noting that she does not want to start any hormones at this time as she has not done well with hormones in the past. She was monitored in the ED and given IV fluids but continued to feel poorly so was admitted by medicine for observation and serial cbc. I am being consulted for management. Her blood pressures have been labile ranging from 99/62 to 150s/low 100. Pulse wnl. sating normally on room air. 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 she does have a hx of endometriosis diagnosed in the past. Multiple medications as noted in the med list. Patient notes she has always been very sensitive to medications. Patient notes she has been on hormones in the past --orthotricyclen for february years and did well. She notes that when she went off the pill she had "panic attacks" that resolved when she went back on. Was told by a doctor at [place] that she has a very sensitive serotonin system and should not take anything that messes with that--and should specifically stay away from depo. Notes she took progesterone suppositories when she had her two miscarriages and did not have any issues with this. She is just very nervous about trialing any new medications. Allergies Allergy/AdvReac Type Severity Reaction Status Date / Time bee venom protein (honey bee) Allergy Severe ANAPHYLAXIS Verified 10/30/24 23:43 shellfish derived Allergy Severe Difficulty Verified 10/30/24 23:43 Swallowing albuterol Allergy Mild Tachycardia Verified 10/30/24 23:43 oxytetracycline Allergy Unknown unkown. Verified 10/30/24 23:43 happened in childhood polymyxin B Allergy Unknown unkown. Verified 10/30/24 23:43 happened in childhood tetracycline Allergy Unknown Unknown Verified 10/30/24 23:43 Serotonin 5HT-3 Antagonists AdvReac Severe HYPERACTIVI Verified 10/31/24 00:36 TY succinylcholine AdvReac Severe STRONG Verified 10/30/24 23:43 [From Anectine] FAMILY HX--INTOLERANT-CAUSED TEMPORARY PARALYSIS Home Medications Medication Instructions Recorded Confirmed Type alprazolam 0.25 mg tablet (Xanax) 0.25 mg PO BID PRN anxiety 07/07/19 10/30/24 History fexofenadine 60 mg tablet (Rosa 60 mg PO Q12H PRN Congestion 06/07/22 10/30/24 History Allergy) vitamin D3 25 mcg (1,000 unit)-vit 1 tab PO QAM 12/23/23 10/26/24 History K2 90 mcg disintegrating tablet meclizine 12.5 mg tablet 12.5 mg PO TID PRN dizziness #20 06/02/24 10/30/24 Rx tabs Active B12 Folate 1 tab PO QAM 07/15/24 10/26/24 History Dimethyl Glycine 1 tab PO QAM 07/15/24 10/26/24 History Gi Complete 1 packet PO DAILY 07/15/24 10/26/24 History amlodipine 5 mg tablet 7.5 mg PO QPM 07/15/24 10/30/24 History Probzyme 2 tab PO UD PRN Constipation 10/16/24 10/26/24 History Relax 2 - 4 tab PO DAILY PRN muscle 10/16/24 10/26/24 History spasms Spm Liquid 1 tbsp PO QAM 10/16/24 10/26/24 History diphenhydramine HCl 25 mg capsule 25 mg PO TID PRN histamine reaction 10/16/24 10/30/24 History (Benadryl) levothyroxine 50 mcg tablet 50 mcg PO QAM 10/16/24 10/30/24 History quercetin 1 tab PO QAM 10/16/24 10/26/24 History omega 0-kit-gjt-fish oil 900 1 cap PO DAILY 10/26/24 10/30/24 History mg-1,400 mg capsule,delayed release afjmejj-qhhfkepiwdvgd-dwzrgryr 250 1 tab PO Q6H PRN HEADACHES 10/30/24 10/30/24 History mg-250 mg-65 mg tablet (Excedrin Migraine) Patient History Medical History Rectocele w/"slight" uterine prolapse Neck problem see below in plan Mast cell activation syndrome Dx by compliance lead, reports intermittent episodes without clear trigger of HTN (up to 200/150 per pt), tachycardia, nausea, and dizziness lasting 15 minutes-3 hours-notes improvement since starting current combination of supplements Family history of pseudocholinesterase deficiency maternal aunt; pt has not been tested or had any reactions Hypertension controlled, stable per pt Gastric reflux controlled, stable per pt Palpitations occasional, chronic GINGER (generalized anxiety disorder) Pre-diabetes diet History of tachycardia cardiac work up negative - still gets occasional - unsure of cause - follows with Cristina Jasmeet's disease Hypothyroidism Hx of migraines occasional / varies Surgical History Hx of wisdom tooth extraction Hx of esophagogastroduodenoscopy Hx of colonoscopy S/P LEEP of cervix S/P ovarian cystectomy History of laparoscopy Hx of tonsillectomy (1999) Family History Mother COPD (chronic obstructive pulmonary disease) Lung cancer Rheumatoid arthritis Hypertension Aortic aneurysm Father , 65 of [place] Heart disease Hypertension Migraines Myocardial infarction Aunt Pseudocholinesterase deficiency Other No pertinent family history Thyroid disease Social History Smoking Status: Never smoker Second Hand Exposure: Yes (hx); Do You Dip or Chew Tobacco: No; Hx Alcohol Use: Yes Alcohol type: wine Alcohol Intake Frequency Comment: Occasional Hx Substance Use: No Preferred Language: Czech Communication Ability: Effective Accounts Specialist Required: No Beliefs That Will Affect Care: None marital status: Current Living Situation: Spouse current occupational status: employed 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 Other Information That Helps Us Care for You: No Feels Safe at Home: Yes Safety Concerns: Feels Safe At This Time Assistive Devices: Contacts and Glasses Physical Exam Constitutional: WD/WN, vitals as above Psychiatric: A+Ox3, euthymic affect Results & Data Vital Signs (Past 12 Hours) Vital Signs Temp Pulse Pulse Resp BP BP Pulse Ox 10/31/24 02:47 36.8 C 89 18 99/62 L 97 10/31/24 02:30 75 13 99/62 L 96 10/31/24 02:05 77 10/31/24 02:03 79 13 113/71 96 10/31/24 01:30 80 19 116/72 98 10/31/24 00:33 101 H 25 H 136/84 97 10/31/24 00:15 86 16 125/75 95 10/30/24 23:33 89 12 133/72 97 10/30/24 22:30 89 19 139/89 97 10/30/24 22:12 95 H 17 140/81 97 10/30/24 21:58 90 10/30/24 21:30 91 H 13 134/84 97 10/30/24 21:18 105 H 12 154/109 H 99 10/30/24 21:00 92 H 12 138/88 10/30/24 20:30 105 H 13 155/105 H 98 10/30/24 20:15 94 H 15 142/88 H 98 10/30/24 19:33 96 H 15 143/87 H 98 10/30/24 19:10 96 H 20 160/91 H 98 10/30/24 18:30 94 H 12 172/100 H 100 10/30/24 18:18 100 10/30/24 17:53 101 H 10/30/24 17:39 103 H 18 98 10/30/24 16:59 100 10/30/24 16:59 10/30/24 16:28 101 H 22 100 10/30/24 16:22 36.7 C 135 H 22 138/89 100 O2 Del Method 10/31/24 02:47 Room Air 10/31/24 02:30 10/31/24 02:05 10/31/24 02:03 10/31/24 01:30 10/31/24 00:33 10/31/24 00:15 10/30/24 23:33 10/30/24 22:30 10/30/24 22:12 10/30/24 21:58 10/30/24 21:30 10/30/24 21:18 10/30/24 21:00 10/30/24 20:30 10/30/24 20:15 10/30/24 19:33 10/30/24 19:10 Room Air 10/30/24 18:30 10/30/24 18:18 10/30/24 17:53 10/30/24 17:39 10/30/24 16:59 Room Air 10/30/24 16:59 Room Air 10/30/24 16:28 Room Air 10/30/24 16:22 Room Air PG Care Time/CCT Total # of Minutes Spent Total Time Spent: 50 Total Time Spent with Patient: Total time spent is greater than 50% in coordination of care (as documented) at patient's floor/unit and/or counseling patient: Coding Level of Care Code 94514 IN/OBS CONSULT LVL 3,45M Diagnoses Dysfunctional uterine bleeding N93.8
[2024-10-31] MEDS: LEVOTHYROXINE SODIUM 50 MCG TABLET PO SCH (07:45)
[2024-10-31] MEDS: NORETHINDRONE 5 MG TAB PO SCH (07:46)
--- NOTE | 2024-10-31 12:58 | Hospitalist Progress Note ---
Date of Service October 31, 2024 Assessment & Plan (1) Abnormal vaginal bleeding: Plan: Dysfunctional uterine bleeding present on admission. Appreciate gynecology consultation and recommendations. She is now on norethindrone orally. She is n.p.o. in case surgery is necessary. She is on IV fluids. H&H will be rechecked at 4 PM today, October 31. is at the bedside. Pelvic ultrasound was completed on October 29 (2) Acute blood loss anemia: Plan: She has not required blood transfusion yet. Most recent hemoglobin 10.2. Will follow (3) Hypertension: Plan: Stable. Continue amlodipine (4) Hypothyroidism: Plan: Stable. Continue current thyroid replacement Plan Anticipate eventual discharge to home. Length of stay will be determined by whether surgery is necessary Admission and Anticipated Discharge Date Admission Date: October 31, 2024 Subjective The patient states that she continues to have bleeding consistent with dysfunctional uterine bleeding. She is now on norethindrone. Appreciate gynecology consultation and recommendations. IV fluids have been started. Continue serial H&H measurements Review of Systems 2 Review of Systems: Constitutionalno fever or chills ENTno blurred vision, no double vision, no epistaxis, no sore throat Respiratoryno cough, no wheezing, no shortness of breath Cardiacno palpitations, no chest pain, no syncope Nazanin nausea, vomiting, diarrhea, melena, hematochezia GUno urinary retention, no urinary incontinence, no dysuria, no hematuria. She continues to have dysfunctional uterine bleeding Musculoskeletalno joint pain, no muscle tenderness Skinno bruising, no rashes, no pruritus Neurono isolated weakness, no paresthesia. Generalized weakness however due to anemia Psychno depression, no anxiety Physical Exam 2 Physical Exam: General-alert and oriented x3, no fever, no chills HEENT-head atraumatic and normocephalic, pupils equal and reactive to light, extraocular muscles intact Neck-no lymphadenopathy or thyromegaly, trachea midline Chest-clear to auscultation. No rales, wheezing or rhonchi Cardiac-regular rate and rhythm, normal S1 and S2 Abdomen-normal bowel sounds, no hepatosplenomegaly Extremities-no cyanosis, clubbing, or edema Neuro-cranial nerves II through XII intact, motor and sensory function within normal limits, strength symmetrical, no focal deficits Psych-normal affect, normal mood Results & Data Results & Data Vital Signs (Past 12 Hours) Vital Signs Temp Pulse Pulse Resp BP BP Pulse Ox 10/31/24 12:00 81 19 126/78 96 10/31/24 10:00 71 14 106/63 99 10/31/24 08:00 83 16 132/86 98 10/31/24 07:38 87 10/31/24 06:50 88 18 111/80 96 10/31/24 06:00 71 20 105/60 96 10/31/24 05:03 74 14 121/73 96 10/31/24 04:00 75 15 114/69 97 10/31/24 03:03 75 16 134/85 96 10/31/24 02:47 36.8 C 89 18 99/62 L 97 10/31/24 02:30 75 13 99/62 L 96 10/31/24 02:05 77 10/31/24 02:03 79 13 113/71 96 10/31/24 01:30 80 19 116/72 98 O2 Del Method 10/31/24 12:00 Room Air 10/31/24 10:00 Room Air 10/31/24 08:00 Room Air 10/31/24 07:38 10/31/24 06:50 Room Air 10/31/24 06:00 Room Air 10/31/24 05:03 Room Air 10/31/24 04:00 Room Air 10/31/24 03:03 Room Air 10/31/24 02:47 Room Air 10/31/24 02:30 10/31/24 02:05 10/31/24 02:03 10/31/24 01:30 Laboratory Results 10/30/24 21:20 10/30/24 16:28 PG Care Time/CCT Total # of Minutes Spent Total Time Spent with Patient: Total time spent is greater than 50% in coordination of care (as documented) at patient's floor/unit and/or counseling patient: Coding Level of Care Code 36100 SUB INP/OBS CARE 3/50MIN Diagnoses Abnormal vaginal bleeding N93.9 Acute blood loss anemia D62 Hypertension I10 Hypothyroidism E03.9
[2024-10-31] MEDS: SODIUM CHLORIDE 0.9% 1,000 ML IV SCH (15:38)
[2024-10-31 17:01] LABS: Hematocrit (blood only) 26.9 % (37.0-47.0); Hemoglobin 8.7 g/dl (12.0-16.0)
[2024-10-31] MEDS: ALPRAZolam 0.25 MG TABLET PO PRN (19:25)
[2024-10-31 21:12] LABS: Hemoglobin 8.5 g/dl (12.0-16.0)
[2024-10-31] MEDS: amLODIPine BESYLATE 5 MG TAB PO SCH (21:53)
[2024-11-01 05:52] LABS: Hematocrit (blood only) 22.1 % (37.0-47.0); Hemoglobin 7.3 g/dl (12.0-16.0); Mean Corpuscular Hemoglobin 28.9 pg (25.0-34.0); Mean Corpuscular Volume 87.4 fL (80.0-100.0); Mean Platelet Volume 10.1 fL (9.4-12.4); Platelet Count 279 K/uL (130-400); RDW Coefficient of Variation 15.2 % (11.5-14.5); RDW Standard Deviation 48.7 fL (36.4-46.3); Red Blood Count 2.53 M/uL (4.20-5.40)
[2024-11-01 06:08] LABS: BUN Creatinine Ratio 21.7 (10-20); Calcium 7.8 mg/dl (8.6-10.3); Creatinine Clr Calc Pharmacy 118.2 ml/min
[2024-11-01] MEDS ORDERED: SODIUM CHLORIDE 0.9% 100 ML IV PRN ×3 (06:23→07:13)
[2024-11-01] MEDS ORDERED: SODIUM CHLORIDE 0.9% 50 ML IV PRN ×3 (06:23→07:13)
--- NOTE | 2024-11-01 11:44 | Hospitalist Progress Note ---
Date of Service November 01, 2024 Assessment & Plan (1) Abnormal vaginal bleeding: Plan: Dysfunctional uterine bleeding present on admission. Appreciate gynecology consultation and recommendations. She is now on norethindrone orally. Hemoglobin has steadily dropped and now 7.3. Blood transfusion is indicated and has been ordered. She has been seen by gynecology. Their recommendations are noted. She remains on norethindrone at this time. is at the bedside. Pelvic ultrasound was completed on October 29 (2) Acute blood loss anemia: Plan: Although the uterine bleeding has slowed it has not completely stopped. Hemoglobin is down to 7.3. Blood transfusion has been ordered. Serial labs ordered. (3) Hypertension: Plan: Stable. Continue amlodipine (4) Hypothyroidism: Plan: Stable. Continue current thyroid replacement Plan Anticipate eventual discharge to home. Length of stay is to be determined Admission and Anticipated Discharge Date Admission Date: November 01, 2024 Subjective The patient is upset, feeling as if she is not being properly treated. However, the BOOSTER STATION OPERATOR physician and myself both disagree with the patient on this matter. Hemoglobin is now down to 7.3 and 2 units of packed red blood cells have been ordered. She remains on IV fluids. Serial labs have been ordered. She may eventually have to have a D&C or hysterectomy. Review of Systems 2 Review of Systems: Constitutionalno fever or chills ENTno blurred vision, no double vision, no epistaxis, no sore throat Respiratoryno cough, no wheezing, no shortness of breath Cardiacno palpitations, no chest pain, no syncope Nazanin nausea, vomiting, diarrhea, melena, hematochezia GUno urinary retention, no urinary incontinence, no dysuria, no hematuria. She continues to have dysfunctional uterine bleeding Musculoskeletalno joint pain, no muscle tenderness Skinno bruising, no rashes, no pruritus Neurono isolated weakness, no paresthesia. Generalized weakness however due to anemia Psychno depression, no anxiety Physical Exam 2 Physical Exam: General-alert and oriented x3, no fever, no chills HEENT-head atraumatic and normocephalic, pupils equal and reactive to light, extraocular muscles intact Neck-no lymphadenopathy or thyromegaly, trachea midline Chest-clear to auscultation. No rales, wheezing or rhonchi Cardiac-regular rate and rhythm, normal S1 and S2 Abdomen-normal bowel sounds, no hepatosplenomegaly Extremities-no cyanosis, clubbing, or edema Neuro-cranial nerves II through XII intact, motor and sensory function within normal limits, strength symmetrical, no focal deficits Psych-normal affect, normal mood Results & Data Results & Data Vital Signs (Past 12 Hours) Vital Signs Temp Pulse Pulse Resp BP BP Pulse Ox 11/01/24 10:19 123 H 18 166/88 H 100 11/01/24 07:49 36.6 C 85 16 116/73 99 11/01/24 07:26 77 11/01/24 03:28 36.7 C 89 18 111/69 97 O2 Del Method 11/01/24 10:19 Room Air 11/01/24 07:49 Room Air 11/01/24 07:26 11/01/24 03:28 Room Air Laboratory Results 11/01/24 05:26 11/01/24 05:26 PG Care Time/CCT Total # of Minutes Spent Total Time Spent with Patient: Total time spent is greater than 50% in coordination of care (as documented) at patient's floor/unit and/or counseling patient: Coding Level of Care Code 59100 SUB INP/OBS CARE 3/50MIN Diagnoses Abnormal vaginal bleeding N93.9 Acute blood loss anemia D62 Hypertension I10 Hypothyroidism E03.9
[2024-11-01] MEDS: NORETHINDRONE 5 MG TAB PO ONE (12:08)
--- NOTE | 2024-11-01 12:08 | Anesthesiology Consultation ---
Date of Service November 01, 2024 Assessment & Plan Chart Review Chart Review: Acceptable Risk for Surgery and Patient NOT seen in Pre Admission Testing Consults Requested none Proposed Anesthesia Anesthesia Type: General History Height/Weight Height: 5 ft 5 in Weight: 78.3 kg Allergies Allergy/AdvReac Type Severity Reaction Status Date / Time bee venom protein (honey bee) Allergy Severe ANAPHYLAXIS Verified 10/30/24 23:43 shellfish derived Allergy Severe Difficulty Verified 10/30/24 23:43 Swallowing albuterol Allergy Mild Tachycardia Verified 10/30/24 23:43 oxytetracycline Allergy Unknown unkown. Verified 10/30/24 23:43 happened in childhood polymyxin B Allergy Unknown unkown. Verified 10/30/24 23:43 happened in childhood tetracycline Allergy Unknown Unknown Verified 10/30/24 23:43 Serotonin 5HT-3 Antagonists AdvReac Severe HYPERACTIVI Verified 10/31/24 00:36 TY succinylcholine AdvReac Severe STRONG Verified 10/30/24 23:43 [From Anectine] FAMILY HX--INTOLERANT-CAUSED TEMPORARY PARALYSIS Medications Home Medications Medication Instructions Recorded Confirmed Last Taken alprazolam 0.25 mg tablet (Xanax) 0.25 mg PO BID PRN anxiety 07/07/19 10/30/24 08/22/19 fexofenadine 60 mg tablet (Rosa 60 mg PO Q12H PRN Congestion 06/07/22 10/30/24 Unknown Allergy) vitamin D3 25 mcg (1,000 unit)-vit 1 tab PO QAM 12/23/23 10/26/24 12/23/23 K2 90 mcg disintegrating tablet meclizine 12.5 mg tablet 12.5 mg PO TID PRN dizziness #20 06/02/24 10/30/24 Unknown tabs Active B12 Folate 1 tab PO QAM 07/15/24 10/26/24 Unknown Dimethyl Glycine 1 tab PO QAM 07/15/24 10/26/24 Unknown Gi Complete 1 packet PO DAILY 07/15/24 10/26/24 Unknown amlodipine 5 mg tablet 7.5 mg PO QPM 07/15/24 10/30/24 Unknown Probzyme 2 tab PO UD PRN Constipation 10/16/24 10/26/24 Unknown Relax 2 - 4 tab PO DAILY PRN muscle 10/16/24 10/26/24 Unknown spasms Spm Liquid 1 tbsp PO QAM 10/16/24 10/26/24 Unknown diphenhydramine HCl 25 mg capsule 25 mg PO TID PRN histamine reaction 10/16/24 10/30/24 Unknown (Benadryl) levothyroxine 50 mcg tablet 50 mcg PO QAM 10/16/24 10/30/24 Unknown quercetin 1 tab PO QAM 10/16/24 10/26/24 Unknown omega 1-llg-ghs-fish oil 900 1 cap PO DAILY 10/26/24 10/30/24 Unknown mg-1,400 mg capsule,delayed release eupdcnb-tygpfxfvpbhnr-jyfjvbcm 250 1 tab PO Q6H PRN HEADACHES 10/30/24 10/30/24 Unknown mg-250 mg-65 mg tablet (Excedrin Migraine) Active Medications Generic Name Dose Route Start Last Admin Trade Name Freq PRN Reason Stop Dose Admin Alprazolam 0.25 mg 10/31/24 02:50 11/01/24 09:28 Alprazolam 0.25 Mg Tablet PO 11/30/24 02:49 0.25 mg BID PRN Administration anxiety Amlodipine Besylate 7.5 mg 10/31/24 21:00 10/31/24 21:53 Amlodipine Besylate 5 Mg Tab PO 11/30/24 20:59 7.5 mg QPM DONALD Administration Sodium Chloride 1,000 mls @ 60 mls/hr 10/31/24 12:45 11/01/24 06:48 Nss IV 11/01/24 12:44 60 mls/hr .[id number] DONALD Administration Levothyroxine Sodium 50 mcg 10/31/24 06:30 11/01/24 06:49 Levothyroxine Sodium 50 Mcg Tablet PO 11/30/24 06:29 50 mcg DAILYBB DONALD Administration Past Medical History Medical History Rectocele w/"slight" uterine prolapse Neck problem see below in plan Mast cell activation syndrome 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, reports intermittent episodes without clear trigger of HTN (up to 200/150 per pt), tachycardia, nausea, and dizziness lasting 15 minutes-3 hours-notes improvement since starting current combination of supplements Family history of pseudocholinesterase deficiency maternal aunt; pt has not been tested or had any reactions Hypertension controlled, stable per pt Gastric reflux controlled, stable per pt Palpitations occasional, chronic GINGER (generalized anxiety disorder) Pre-diabetes diet History of tachycardia cardiac work up negative - still gets occasional - unsure of cause - follows with Cristina Jasmeet's disease Hypothyroidism Hx of migraines occasional / varies Fibromyalgia obese anemia-acute blood loss HLD Hx/o syncope Exercise / Class Metabolic Activity II 4-5 Yardwork/Stairs/Walk up hill Past Family History Family History Mother COPD (chronic obstructive pulmonary disease) Lung cancer Rheumatoid arthritis Hypertension Aortic aneurysm Father , 65 of [place] Heart disease Hypertension Migraines Myocardial infarction Aunt Pseudocholinesterase deficiency Other No pertinent family history Thyroid disease Past Surgical History Surgical History Hx of wisdom tooth extraction Hx of esophagogastroduodenoscopy Hx of colonoscopy S/P LEEP of cervix S/P ovarian cystectomy History of laparoscopy Hx of tonsillectomy (1999) Past Anesthesia History No Hx of Anesthesia Complications and No Family Hx of Anesthesia Complications History of PONV No Hx of PONV and No Hx of Motion Sickness Social History Smoking Status: Never smoker Do You Dip or Chew Tobacco: No Hx Alcohol Use: Yes Alcohol type: wine alcohol intake frequency: a few times a month Hx Substance Use: No substance use type: does not use Physical Exam Vital Signs Last Vital Signs Temp 36.9 C 11/01/24 11:48 Pulse 112 H 11/01/24 11:48 Resp 16 11/01/24 11:48 BP 166/92 H 11/01/24 11:48 Pulse Ox 98 11/01/24 11:48 O2 Del Method Room Air 11/01/24 11:48 Testing Laboratory Results 11/01/24 05:26 11/01/24 05:26 PT 10.3 Seconds (9.0-12.0) 10/30/24 16:28 INR 0.9 (0.9-1.1) 10/30/24 16:28 APTT 22 Seconds (21-31) 10/30/24 16:28 Urine Color Rhea 10/30/24 21:20 Urine Appearance Clear (Clear) 10/30/24 21:20 Urine pH 8.0 (4.5-7.5) H 10/30/24 21:20 Ur Specific Williamson 1.013 (1.000-1.030) 10/30/24 21:20 Urine Protein Negative (Negative) 10/30/24 21:20 Urine Glucose (UA) Negative (Negative) 10/30/24 21:20 Urine Ketones Negative (Negative) 10/30/24 21:20 Urine Nitrite Negative (Negative) 10/30/24 21:20 Ur Leukocyte Esterase Negative (Negative) 10/30/24 21:20 Urine WBC (Auto) 0-5 /hpf (0-5) 10/30/24 21:20 Urine RBC (Auto) >20 /hpf (0-2) H 10/30/24 21:20 U Hyaline Cast (Auto) 0-2 /lpf (0-2) 10/30/24 21:20 U Epithel Cells (Auto) 0-2 /hpf (0-2) 10/30/24 21:20 Urine Bacteria (Auto) None Seen (None Seen) 10/30/24 21:20 Blood Type O Positive 11/01/24 06:28 Antibody Screen NEGATIVE 11/01/24 06:28 Electrocardiogram Date: 10/30/24 Findings: + ST @ (@ 115;NS ST abnlty) Chest X-Ray Date: 10/30/24 Findings: + NAD Echocardiogram Date: 09/20/23 EF: 60% LV Function: normal RWMA: + none Valvular Disease: + no significant valvular disease Cervical Spine Date: 10/30/24 CT C spine-C5-6,C6-7 left facet arthropathy,otherwise unremarkable Other Testing 12/23/2023- Neck CTA-no vacular occlusions 12/23/2023-CT Chest-normal;no significant coronary artery calcifications 10/30/2024-CT Head-right sphenoid sinusitis;No definite Intracranial pathology 12/23/2023-CT cervical rpifz-[id number]-izfm interval is maintained;dens is intact;no acute fx or subluxation of cervical spine
[2024-11-01 12:14] LABS: Hematocrit (blood only) 24.8 % (37.0-47.0); Hemoglobin 8.3 g/dl (12.0-16.0)
--- NOTE | 2024-11-01 12:19 | Gynecologic Progress Note ---
Date of Service November 01, 2024 Assessment & Plan (1) Acute blood loss anemia: (2) Abnormal uterine bleeding (AUB): (3) Abnormal ultrasound of uterus: Plan More than 2hr 45min spent at bedside. Spoke to pt at length and reviewed her concerns, including lack of trust in her health care and empathy expressed. She ultimately accepted one unit of blood and advised her to consider proceeding to OR today given her concern for needing more and continued passage of clots. In the time that it has taken to review her history, concerns etc. She ended up going to [facility] and noting only streak of blood on pad, no clots and her hgb repeat at 1151am with no transfusion, returned 8.3. So seemingly the plan to get her bleeding controlled to get her to planned surgery is working. She does not need transfusion at this time. I have had anesthesia review chart and given neg CT neck from 2days ago, ok to proceed to surgery. I did speak to hospitalist team and her light rail transit operator (on her behalf) to discuss her case. OK to proceed with surgery today, the goals would be to manage bleeding, therapy and diagnosis, without waiting longer for bleeding to worsen and then need blood transfusion, VS. proceed as planned to or later this week, cont medication trt until then. Alot of this decision can stem from her concern about receiving blood, which we always want to avoid but she seems to want me to predict whether i can get her to the planned OR date without worsening and I explained I cannot. I cannot fix her concerns about her care up until this time but in truth her medical trt plan is working, but if she prefers to proceed to OR now, can do so and still may need transfusion but then at least is not waiting to see the the medical management will cont to work for more days. All of which is unpredictable. She is considering all of this and will let me know. I have discussed with medicine team taking her on our service and they are comfortable with that. Will see how she would like to proceed. Many minutes spent at bedside all in discussion of her situation, risk, options, medications etc. at least 120min bedside and 60min documentation. Addendum: Ultimately pt opts to proceed with surgery now and consent reviewed and signed. Risks, alt and benefits reviewed. We discussed continuing on the aygestin postop since she has been tolerating and then withdraw. Will likely hold off her bleeding for couple weeks where she can build back her stores. We will move her to [facility] as well and hospitalist group ok with this. Emphasized that there is no way for me to predict how surgery will go or future need for blood transfusions or future need for more surgery. She seems to un derstand and denies further questions. Admission and Anticipated Discharge Date Admission Date: November 01, 2024 Subjective came to see pt for rounds and now have spent about 2hr+ at bedside. Patient admission history reviewed and i was made aware of her by off going crystal epperson yesterday am. I was notified about her desire to eat at about 3pm yesterday and as of then we were trying use medications to stabilize her lining and trending hgbs which were still ok, she was ok to eat. This am her hgb has trended to 7.3 and she has been recommended to have transfusion and upset and feels no one is helping her with her care. She does not since yesterday her clots have slowed and now dark colored and smaller. As of last pm she was having stable hgb and unfortunately this am hgb 7.3. She does express to me that no one is listening to her, no one is taking charge of her care. She has been called by her light rail transit operator and he has recommended she get blood transfusion but no one has explained anything to her. She does not like her hospitalist team etc. She has neck issue where there was a planned mri for tues to clear her neck due to concern for anesthesia and "why can't that be done urgently" and "why have we let her hemoglobin go to a level where she needs blood transfusion, she is afraid of the covid spike protein in the blood supply." Does not want transfusion but not willing to risk her life and her cardiac health. Review of Systems Constitutional: as per Subjective / HPI Physical Exam Constitutional: WD/WN, vitals as above Neurologic: grossly normal Psychiatric: A+Ox3, euthymic affect Results & Data Vital Signs (Past 12 Hours) Vital Signs Temp Pulse Pulse Resp BP BP Pulse Ox 11/01/24 11:48 98.4 F 112 H 16 166/92 H 98 11/01/24 10:19 123 H 18 166/88 H 100 11/01/24 07:49 97.9 F 85 16 116/73 99 11/01/24 07:26 77 11/01/24 03:28 98.1 F 89 18 111/69 97 O2 Del Method 11/01/24 11:48 Room Air 11/01/24 10:19 Room Air 11/01/24 07:49 Room Air 11/01/24 07:26 11/01/24 03:28 Room Air PG Care Time/CCT Total # of Minutes Spent Total Time Spent with Patient: Total time spent is greater than 50% in coordination of care (as documented) at patient's floor/unit and/or counseling patient: Coding Level of Care Code 80416 IN/OBS CONSULT LVL 5,80M (57 - DECISION FOR SURGERY) Diagnoses Acute blood loss anemia D62 Abnormal uterine bleeding (AUB) N93.9 Abnormal ultrasound of uterus R93.5
[2024-11-01] MEDS ORDERED: NALOXONE HCL 0.4 MG/1 ML VIAL/CARP IV PRN (13:42)
[2024-11-01] MEDS ORDERED: FLUMAZENIL 0.1 MG/1 ML 10 ML VIAL IV PRN (13:42)
[2024-11-01] MEDS ORDERED: ePHEDrine sulfate 50 MG/ML AMP IV PRN (13:42)
[2024-11-01] MEDS ORDERED: PROMETHAZINE HCL 6.25 MG in SODIUM CHLORIDE 0.9% 50 ML IV PRN (13:42)
[2024-11-01] MEDS ORDERED: ATROPINE SULFATE 0.1 MG/ML 10ML SYR IV PRN (13:42)
--- NOTE | 2024-11-01 15:31 | Operative Report ---
PG Post Operative Report Pre & Post Diagnosis Operation Date: 11/01/24 13:10 Pre-Op Diagnosis: AUB, abnormal u/s of uterus, acute anemia Post-Op Diagnosis: same, intracavitary fibroid I identified the patient and participated in the time-out.: Yes Procedure Operation Date: 11/01/24 13:10 Actual Procedures p Dilation and Curettage(Not Applicable) - Grace Ramachandran MD, FACOG s Hysteroscopy with use of Myosure and myomectomy(Not Applicable) - Grace Ramachandran MD, FACOG Surgeon Grace Ramachandran MD, FACOG Italian Teacher none Estimated Blood Loss 5 Findings Consistent with Post-Op Diagnosis (uterus sounds to 9cm. bilateral ostia normal. anterior wall fibroid seen just above level of internal cervical os. saline deficit 395cc. only part of myoma able to be resected in this sitting. minimal curettings. ) Fluids 750cc Specimens endometrial curettings and myoma Drains none Anesthesia Type General Complications none Disposition Accompanied Patient To Recovery: No Disposition: Recovery Room Indications 53yo with aub and acute blood loss with anemia with u/s showing thickened lining, possible intracavitary lesion for urgent surgery, please see admission notes. Description of Procedure The patient was taken to the operating room and identified. After adequate general anesthesia was obtained, she was placed in the dorsal lithotomy position and prepped and draped in the usual sterile fashion. Her bladder was drained under sterile conditions for clear yellow urine. The weighted speculum and anterior retractor were placed to visualize the cervix which was grasped on its anterior lip with an Allis clamp. The cervix was sequentially dilated using hega r dilators to 23. The myosure hysteroscope was placed with findings as noted above. The myosure device was readied and was introduced. The cavity was sampled and the fibriod was approached but suspected needed larger myosure and so myosure XL obtained and Xl device use. Myoma difficult to resect, firm and saline deficit stopped machine multiple times as lesion so close to os, alot of egress of fluid from os. The myoma was definitely sampled and partial myomectomy took place. The hysteroscope was removed and the uterus was curettaged to a gritty consistency. The specimens were all sent together. The allis clamp was removed and no bleeding was noted. The procedure was terminated. The patient was returned to the supine position, she was awoken from her anesthesia and transferred to the recovery room in stable condition. All sponge, lap and needle counts were correct x 2. I attest to the content of the Intraoperative Record and any orders documented therein. Any exceptions are noted below. ON SITE SOIL EVALUATOR Minor Procedure Codes Hysteroscopy(ic) D/C [address] [facility] [place] [facility] [place]
[2024-11-01] MEDS ORDERED: oxyCODONE HCL IR 5 MG TAB (IMMEDIATE RELEASE) PO PRN (15:36)
[2024-11-01] MEDS ORDERED: IBUPROFEN 600 MG TAB PO PRN (15:37)
[2024-11-01] MEDS: fentaNYL citrate PF 100 MCG/2 ML VIAL IV PRN (15:47)
[2024-11-01] MEDS ORDERED: HYDROmorphone INJ 0.5 MG/0.5 ML SYR IV PRN (16:04)
--- NOTE | 2024-11-01 16:10 | Communication Note ---
Date of Service: November 01, 2024 I was contacted by the on-call answering service that Ms. Noe requested a return phone call in regards to her medical care. She was admitted for vaginal bleeding. I returned the call (at approx 0845 on 11/01/24) as per her request and she was upset. She was very much wanting to avoid a blood transfusion but told me that blood transfusion was recommended by her other care providers for hemoglobin of 7.3. I reviewed her labs and noted that her hemoglobin was 13.9 on 10/29/2024 and trended down to 7.3 on 11/01/2024 at 5:26 AM. She was concerned about receiving blood from a donor that had received COVID vaccination. She mentioned her concerns about medical therapy for her vaginal bleeding. She states that she is concerned about her bleeding may continue. She expressed interest that she would like to undergo a procedure to help with the bleeding but was apparently told that she would have to wait to have it done as an outpatient. She asked me for advice. I had recommended that if she is continuing to bleed and that her other providers recommended a blood transfusion, that she should consider their advice, to avoid more profound anemia which could cause end-organ damage. In regards to her vaginal bleeding and plan of care, I informed her that that is outside of my expertise. At 12:46 PM today, I was contacted by Dr. Ramachandran of [facility]. She had asked that I visit with Ms. Noe given that she expressed that I be informed of the plan of care given that I follow her in the outpatient setting (and am a familiar to her). I presented to the bedside earlier this afternoon. She had several family members at the bedside. Fortunately, her hemoglobin increased to 8.3 without intervention. Her other providers informed her that she no longer required a transfusion. She was relieved to know that she did not require blood transfusion. She again asked me if she should undergo surgery as Dr. Ramachandran had offered surgery today. I once again informed her that [facility] issues are outside of my scope of practice/expertise. After discussion, she informed me that she would like to undergo the procedure today as suggested by Dr. Ramachandran. She expressed gratitude for speaking with her on the phone and stopping by. I then notified Dr. Ramachandran so that she could make arrangements and confirm with patient. No formal consultation has been requested. She did not present with any acute cardiac issues.
--- NOTE | 2024-11-01 16:14 | Anesthesiology Progress Note ---
Date of Service November 01, 2024 Anesthesia Post Procedure Vital Signs Vital Signs: Temp Pulse Pulse Pulse Resp BP BP 11/01/24 16:05 96 H 12 150/80 H 11/01/24 15:55 98 H 12 153/82 H 11/01/24 15:45 36.5 C 102 H 17 153/78 H 11/01/24 11:48 36.9 C 112 H 16 166/92 H 11/01/24 10:19 123 H 18 166/88 H 11/01/24 07:49 36.6 C 85 16 116/73 11/01/24 07:26 77 11/01/24 03:28 36.7 C 89 18 111/69 10/31/24 19:32 37.0 C 114 H 22 150/92 H 160/85 H 10/31/24 17:14 67 10/31/24 16:16 37.1 C 87 18 145/81 H Pulse Ox O2 Del Method O2 Flow Rate 11/01/24 16:05 97 Room Air 11/01/24 15:55 100 Oxymask 5 11/01/24 15:45 100 Oxymask 5 11/01/24 11:48 98 Room Air 11/01/24 10:19 100 Room Air 11/01/24 07:49 99 Room Air 11/01/24 07:26 11/01/24 03:28 97 Room Air 10/31/24 19:32 99 Room Air 10/31/24 17:14 10/31/24 16:16 100 Room Air Pain Intensity Abdomen: Pain Intensity: 3 Transfer of Care Handoff Completed per policy Notes Mental Status: alert / awake / arousable Patient Amnestic to Procedure: Yes Nausea / Vomiting: adequately controlled Pain: adequately controlled Airway Patency, RR, SpO2: stable & adequate BP & HR: stable & adequate Hydration State: stable & adequate Anesthetic Complications: no major complications apparent
[2024-11-01] MEDS ORDERED: oxyCODONE/ACETAMINOPHEN 5mg/325mg TAB PO PRN ×2 (16:30)
[2024-11-01] MEDS: ONDANSETRON INJ 2 MG/ML 2 ML VIAL IV PRN (17:16)
[2024-11-01] MEDS: MECLIZINE 12.5 MG TAB PO PRN (18:27)
[2024-11-01] MEDS: NORETHINDRONE 5 MG TAB PO SCH (18:28)
--- NOTE | 2024-11-01 20:43 | Communication Note ---
Date of Service: November 01, 2024 visited with pt in room postop. [place] [facility] [place]. no issues with bleeding thus far. still groggy from surgery, but voi judy and ambul to br with help. had nausea and received meds. discussed plan for am if remains stable. 9pm hgb planned but if bleeding is slowed will not plan more, just po iron to improve stores. will make postop followup plan after discussion with her primary obstetrician/gynecologist. She knows we will also call her with pathology results. asked questions and answered to the best of my ability.
[2024-11-01 21:37] LABS: Hematocrit (blood only) 24.1 % (37.0-47.0)
--- NOTE | 2024-11-01 22:00 | Electrocardiogram Report ---
Test Reason : Blood Pressure : */* mmHG Vent. Rate : 115 BPM Atrial Rate : 115 BPM P-R Int : 132 ms QRS Dur : 76 ms QT Int : 318 ms P-R-T Axes : 51 54 47 degrees QTcB Int : 439 ms Sinus tachycardia When compared with ECG of 02-Jun-2024 19:38, No significant change was found Confirmed by Vishnu Evans ([id number]) on 11/01/2024 9:59:55 PM Referred By: REFERRED SELF Confirmed By: Vishnu Evans
--- NOTE | 2024-11-02 07:16 | Gynecologic Progress Note ---
Date of Service November 02, 2024 Assessment & Plan (1) Post-operative state: (2) Abnormal ultrasound of uterus: (3) Abnormal uterine bleeding (AUB): (4) Acute blood loss anemia: Plan kept pt overnight to see if any concerning bleeding, none seen. now ready for dc. pt concerned that it needs to be rechecked but given she does not have ongoing losses and that she will refuse or prefer no prbcs, i do not feel needed. pt aware needs time to use po iron to build stores, advised how to do so. will be discussing her case with her usual adhesive bonding machine operator provider to plan f/u and she will be called. rec 2wks before recheck hgb as it takes time. she is tolerating her hgb well and tried to remind her that her passing out episode was not related to her hgb which has been reviewed with her multiple times, although she may have felt faint due to seeing so much blood. she plans f/u with her pcp. she will avoid any hormone based homeopathic meds and stay on tapering course of aygestin, where she will need to expect a period and bleeding. instructions reviewed. Admission and Anticipated Discharge Date Admission Date: November 01, 2024 Subjective much improved bleeding overnight, spotting. no issues with eating, voiding, ambulating, feels good. hgb last pm 8. stable. Review of Systems Constitutional: as per Subjective / HPI Physical Exam Constitutional: WD/WN, vitals as above Respiratory: normal respiratory effort, lungs clear to auscultation Cardiovascular: Rate/Rhythm: regular rate and regular rhythm Gastrointestinal (Abdomen): Percussion/Palpation: abdomen soft; abdomen nontender and no guarding Neurologic: grossly normal Psychiatric: A+Ox3, euthymic affect Results & Data Vital Signs (Past 12 Hours) Vital Signs Temp Pulse Resp BP BP Pulse Ox O2 Del Method 11/02/24 03:44 98.1 F 83 18 115/63 98 Room Air 11/01/24 23:05 98.1 F 98 H 16 118/79 98 Room Air 11/01/24 20:16 98.1 F 92 H 16 137/78 Room Air PG Care Time/CCT Total # of Minutes Spent Total Time Spent with Patient: Total time spent is greater than 50% in coordination of care (as documented) at patient's floor/unit and/or counseling patient: Coding Level of Care Code None Diagnoses Post-operative state Z98.890 Abnormal ultrasound of uterus R93.5 Abnormal uterine bleeding (AUB) N93.9 Acute blood loss anemia D62
[2024-11-02] MEDS: diphenhydrAMINE Capsule 25 MG CAP PO PRN (10:06)
--- NOTE | 2024-11-02 11:06 | Communication Note ---
Date of Service: November 02, 2024 Presented to pt's bedside at request from nurse. Pt was feeling well and then showered. After showering, felt very fatigued and generally unwell. Feels lightheaded/dizzy like how she did before she passed out on at home. Feels like chest is achey at her sternum and under her left breast, also like she is having pvcs. Denies shortness of breath. Some abdominal discomfort but not severe, vaginal bleeding is very minimal. States this is the first time that she has really been standing for any period of time since Saturday. Ate usual breakfast this AM without difficulty, voiding without difficulty. Tachycardic on exam but regular rhythm, CTAB. Abd soft, mild ttp in pelvis but appropriate. When palpating, pt notes is more achey but not quite reproducible. Will get cbc to ensure not a isabella in h/h and stat ekg. Before leaving room, HOB was more elevated and pt notes she was feeling better in this position than laying flat on her back
[2024-11-02 12:01] LABS: Hemoglobin 8.1 g/dl (12.0-16.0); Mean Corpuscular Hemoglobin 28.4 pg (25.0-34.0); Mean Corpuscular Hgb Conc 33.8 g/dL (32.0-36.0); Mean Corpuscular Volume 84.2 fL (80.0-100.0); Mean Platelet Volume 10.1 fL (9.4-12.4); Platelet Count 366 K/uL (130-400); RDW Coefficient of Variation 15.4 % (11.5-14.5); RDW Standard Deviation 46.8 fL (36.4-46.3); Red Blood Count 2.85 M/uL (4.20-5.40); White Blood Count 23.52 K/ul (4.8-10.8)
--- NOTE | 2024-11-02 12:28 | Communication Note ---
Date of Service: November 02, 2024 Checked on pt and she feels a little better, still low energy. EKG just performed showing sinus tach, will leave in room for hospitalist team as they ar e coming to see her. Tachycardia improving a bit as well, still 100% O2 sat. She notes that at home, her BG on her CGM can be in the 150s but can spike to 200-300 and eventually goes down. Tells me that her a1c was 6.9 when last checked in the last month. H/H is stable, will await hospitalist
--- NOTE | 2024-11-02 13:12 | Electrocardiogram Report ---
Test Reason : Blood Pressure : */* mmHG Vent. Rate : 114 BPM Atrial Rate : 114 BPM P-R Int : 180 ms QRS Dur : 76 ms QT Int : 324 ms P-R-T Axes : 68 61 17 degrees QTcB Int : 446 ms Sinus tachycardia Nonspecific ST abnormality Abnormal ECG When compared with ECG of 30-Oct-2024 16:41, No significant change was found Confirmed by Vishnu Evans ([id number]) on 11/02/2024 1:11:39 PM Referred By: REFERRED SELF Confirmed By: Vishnu Evans
[2024-11-02 15:32] LABS: Ferritin 9.3 ng/ml (8-388)
[2024-11-02] MEDS ORDERED: POLYETHYLENE (MIRALAX) 17 GM PACK PO PRN (18:22)
--- NOTE | 2024-11-02 19:57 | Hospitalist Progress Note ---
Date of Service November 02, 2024 Assessment & Plan (1) Pre-syncope: Plan: 53 y/o admitted for syncopal event, dysfunctional uterine bleeding, anemia DUB resolved with treatment, see below Syncopal event prior to admission sounds vasovagal by description History of frequent sinus tachycardia, mast cell activation syndrome - symptoms recently improved on current supplements Presyncopal type symptoms, sinus tachycardia (personally reviewed EKG), weakness, paresthesias, chest pain this morning following a shower Ddx - vasovagal episode or hypotensive episode aggravated by anemia and vasodilation, histamine release triggered by heat. She has no calf pain or sw elling, no hypoxia, no ongoing chest pain, no history of VTE, and I think PE is unlikely. Did not have rash or wheezing to suggest allergic reaction. Autonomic dysfunction seems to be an underlying issue for her. No meds to aggravate. TSH was normal. Consider sepsis though seems unlikely -Hg stable, checked ferritin which is low at 8, no evidence of acute hemorrhage -orthostatic vitals - was not orthostatic when checked at 1400 by nursing -tele monitor ordered - though has had multiple event monitors by cardiology with only sinus tachycardia in past, reviewed notes and studies per Dr. Cecilia montejo -I think ACS/angina is very unlikely -has leukocytosis but CRP and procalcitonin were low today, sepsis unlikely -checked random cortisol and it is low at 0.5 Possible adrenal insufficiency -observe overnight and transferred to med/surg with tele -cosyntropin stim test ordered for AM, random cortisol was 0.5 this afternoon. Should be elevated if anything. (2) Sinus tachycardia: Plan: Longstanding Echo this year and stress echo within past few years normal TSH is normal See above discussion, evaluate adrenal function more formally (3) Abnormal vaginal bleeding: Plan: Dysfunctional uterine bleeding present on admission. Had D&C by embedded engineer 11/01 On norethindrone and bleeding essentially resolved Discussed with Dr. Grimm - exam was suspicious for fibroid, however, no findings concerning for infection (4) Acute blood loss anemia: Plan: Hg 8.1 She would prefer to not have blood transfusion We discussed if symptomatic anemia she may benefit from transfusion or at least IV iron. She may agree to IV iron. -ferritin was low at 8 - discuss IV iron with her tomorrow -oral iron replacement and anemia follow up as outpatient (5) Hypertension: Plan: Stable. Continue amlodipine (6) Hypothyroidism: Plan: Stable. Continue current thyroid replacement (7) Pre-diabetes: Plan: Has CGM Sometimes goes up to 200-300 but she says A1c is good Admission and Anticipated Discharge Date Admission Date: November 01, 2024 Subjective Brandy was treated for uterine bleeding with D&C and hormonal treatment, vaginal bleeding essentially resolved Was planning discharge this AM, had shower and following that had lightheadedness, weakness and presyncopal symptoms. She had sinus tachycardia that persisted quite some time with some left sided chest pain symptoms. BP once RN got her back in bed was hypertensive, 160/x, 140s/x It took some hours for her to feel well again. I saw her mid-afternoon and she finally felt better, well enough to get up to bathroom with RN Physical Exam Physical Exam: PHYSICAL EXAMINATION Last 24h vital signs reviewed, see documentation in flowsheet General: comfortable appearing, no distress HEENT: Normocephalic, atraumatic, pupils round and equal, sclerae anicteric, no conjunctival injection, moist mucus membranes Lungs: Normal respiratory effort. Clear to auscultation bilaterally. No RRW Heart: Regular rate and rhythm, mildly tachycardic sitting upright in bed, no murmurs. No JVD Abdomen: Soft, nontender, nondistended. Bowel sounds present. Extremities: Warm, dry, well-perfused. No extremity edema. Neuro: Alert and oriented x 4, face symmetric, moves 4 extremities well Psych: Normal affect and behavior Results & Data Results & Data Vital Signs (Past 12 Hours) Vital Signs Temp Pulse Pulse Resp BP BP Pulse Ox 11/02/24 18:42 109 H 11/02/24 18:23 98.2 F 101 H 18 138/82 100 11/02/24 14:15 130/82 11/02/24 14:05 118/79 11/02/24 14:00 98.8 F 106 H 18 130/84 100 11/02/24 12:40 98.6 F 102 H 18 155/81 H 99 11/02/24 10:05 120 H 18 160/81 H 99 11/02/24 10:00 98.8 F 102 H 18 148/77 H O2 Del Method 11/02/24 18:42 11/02/24 18:23 Room Air 11/02/24 14:15 11/02/24 14:05 11/02/24 14:00 Room Air 11/02/24 12:40 Room Air 11/02/24 10:05 Room Air 11/02/24 10:00 Room Air Laboratory Results 11/02/24 11/02/24 11/02/24 Range/Units 14:41 12:03 11:25 WBC 23.52 H (4.8-10.8) K/ul RBC 2.85 L (4.20-5.40) M/uL Hgb 8.1 L (12.0-16.0) g/dl Hct 24.0 L (37.0-47.0) % MCV 84.2 (80.0-100.0) fL MCH 28.4 (25.0-34.0) pg MCHC 33.8 (32.0-36.0) g/dL RDW Std Deviation 46.8 H (36.4-46.3) fL RDW Coeff of Shannon 15.4 H (11.5-14.5) % Plt Count 366 (130-400) K/uL MPV 10.1 (9.4-12.4) fL Peripher Smr Path Cons Pending POC Glucose 191 H (70-99) mg/dl Ferritin 9.3 (8-388) ng/ml C-Reactive Protein 1.00 H (0-0.5) mg/dl Procalcitonin 0.02 (0-0.5) ng/ml Random Cortisol 0.52 mcg/dl 11/02/24 11/01/24 Range/Units 11:24 20:59 WBC (4.8-10.8) K/ul RBC (4.20-5.40) M/uL Hgb 8.0 L (12.0-16.0) g/dl Hct 24.1 L (37.0-47.0) % MCV (80.0-100.0) fL MCH (25.0-34.0) pg MCHC (32.0-36.0) g/dL RDW Std Deviation (36.4-46.3) fL RDW Coeff of Shannon (11.5-14.5) % Plt Count (130-400) K/uL MPV (9.4-12.4) fL Peripher Smr Path Cons POC Glucose 213 H (70-99) mg/dl Ferritin (8-388) ng/ml C-Reactive Protein (0-0.5) mg/dl Procalcitonin (0-0.5) ng/ml Random Cortisol mcg/dl PG Care Time/CCT Total # of Minutes Spent Total Time Spent with Patient: I personally spent: 65 minutes today on clinical care activities including: reviewing chart notes and vital signs reviewing labs reviewing studies discussion with validation consultant(s) examining and counseling the patient counseling the patient's family writing orders documentation Coding Level of Care Code 58364 SUB INP/OBS CARE 3/50MIN Diagnoses Pre-syncope R55 Sinus tachycardia R00.0 Abnormal vaginal bleeding N93.9 Acute blood loss anemia D62 Hypertension I10 Hypothyroidism E03.9 Pre-diabetes R73.03
[2024-11-03 07:36] VITALS: O2SAT 99
[2024-11-03 09:00] LABS: Hematocrit (blood only) 24.6 % (37.0-47.0); Hemoglobin 8.3 g/dl (12.0-16.0); Mean Corpuscular Hemoglobin 28.5 pg (25.0-34.0); Mean Corpuscular Hgb Conc 33.7 g/dL (32.0-36.0); Mean Corpuscular Volume 84.5 fL (80.0-100.0); Mean Platelet Volume 9.9 fL (9.4-12.4); Platelet Count 399 K/uL (130-400); RDW Coefficient of Variation 15.8 % (11.5-14.5); RDW Standard Deviation 48.5 fL (36.4-46.3); Red Blood Count 2.91 M/uL (4.20-5.40); White Blood Count 15.05 K/ul (4.8-10.8)
[2024-11-03 09:04] LABS: Basophils # (auto) 0.08 K/uL (0.00-0.20); Basophils % (auto) 0.5 %; Eosinophils # (auto) 0.27 K/uL (0.00-0.50); Eosinophils % (auto) 1.8 %; Immature Granulocytes % (auto) 0.7 %; Lymphocytes % (auto) 33.2 %; Monocytes % (auto) 7.3 %; Neutrophils % (auto) 56.5 %
[2024-11-03] MEDS: COSYNTROPIN 250 MCG in SYRINGE 4 ML IV ONE (10:14)
[2024-11-03 11:51] VITALS: BP 130/77; RESP 20; TEMP 98.4
[2024-11-03] MEDS: diphenhydrAMINE 50 MG/ML VIAL IV STA (15:37)
[2024-11-03] MEDS: IRON SUCROSE 200 MG in SODIUM CHLORIDE 0.9% 100 ML IV ONE (15:54)
[2024-11-03 17:04] VITALS: PULSE 91
--- NOTE | 2024-11-03 17:11 | Discharge Summary ---
Discharge Summary Date of Service November 03, 2024 Principal Dx & Hospital Course #1 = Principal Diagnosis (1) Pre-syncope: 53 y/o admitted for syncopal event, dysfunctional uterine bleeding, anemia DUB resolved with treatment, see below Syncopal event prior to admission sounds vasovagal by description History of frequent sinus tachycardia, mast cell activation syndrome - symptoms recently improved on current supplements Presyncopal type symptoms, sinus tachycardia (personally reviewed EKG), weakness, paresthesias, chest pain this morning following a shower Ddx - vasovagal episode or hypotensive episode aggravated by anemia and vasodilation, histamine release triggered by heat. She has no calf pain or swelling, no hypoxia, no ongoing chest pain, no history of VTE, and I think PE is unlikely. Did not have rash or wheezing to suggest allergic reaction. Autonomic dysfunction seems to be an underlying issue for her. No meds to aggravate. TSH was normal. Consider sepsis though seems unlikely -Hg stable, checked ferritin which is low at 8, no evidence of acute hemorrhage -orthostatic vitals - was not orthostatic when checked at 1400 by nursing -tele monitor ordered - though has had multiple event monitors by cardiology with only sinus tachycardia in past, reviewed notes and studies per Dr. Evans -I think ACS/angina is very unlikely -has leukocytosis but CRP and procalcitonin were low today, sepsis unlikely -checked random cortisol and it is low at 0.5 Possible adrenal insufficiency -observe overnight and transferred to med/surg with tele -cosyntropin stim test ordered for AM, random cortisol was 0.5 this afternoon. Should be elevated if anything. (2) Sinus tachycardia: Longstanding Echo this year and stress echo within past few years normal TSH is normal See above discussion, evaluate adrenal function more formally (3) Abnormal vaginal bleeding: Dysfunctional uterine bleeding present on admission. Had D&C by stone carriage operator 11/01 On norethindrone and bleeding essentially resolved Discussed with Dr. Grimm - exam was suspicious for fibroid, however, no findings concerning for infection (4) Acute blood loss anemia: Hg 8.1 She would prefer to not have blood transfusion We discussed if symptomatic anemia she may benefit from transfusion or at least IV iron. She may agree to IV iron. -ferritin was low at 8 - discuss IV iron with her tomorrow -oral iron replacement and anemia follow up as outpatient (5) Hypertension: Stable. Continue amlodipine (6) Hypothyroidism: Stable. Continue current thyroid replacement (7) Pre-diabetes: Has CGM Sometimes goes up to 200-300 but she says A1c is good Admission HPI Per Admitting Provider Brandy Noe is a 53yo female with history of HTN presenting with vaginal bleeding. Patient with normal, regular periods until last year - bleeding became quite heavy and irregular. She reports bleeding fairly constantly from May --> July 2024. She was seen by Gynecology on 10/26/24 and had a Pap smear performed. She reports developing recurrence of bleeding following the Pap smear. Over the last several days she has been having heavy vaginal bleeding. She has been passing large number of clots - she reports being as big as her fist. On 10/28/23 she reports bleeding through a thick pad and a Depends diaper approximately every hour. She was seen in the ER on 10/29/24 with these complaints. Her Hgb=13.9 at that time and Hct=41.6. She was offered Aygestin taper which she refused and was ultimately discharged home. She reports her bleeding has continued. Tonight she stood up from the couch and became dizzy, nauseated and passed out. She denies chest pain, SOB or dizziness at rest but does become dizzy with near syncope with positional changes. In the ER she is afebrile, HD stable ER Course: Benadryl Discharge Plan Discharge Items Patient Disposition: Home - Self-Care Reason For Visit: VAGINAL BLEEDING Discharge Diagnosis: 1. abnormal uterine bleeding - D&C by Dr Ramachandran, [facility] concrete rubber 2. acute blood loss anemia due to #1 above 3. severe iron deficiency 4. concern for adrenal insufficiency 5. history of tachycardia - worsened by anemia and possible adrenal insufficiency Activity: Per Instructions section Non-emergency contact: Primary Care Provider and Veneer Jointer Returner Call non-emergency contact if: you have any medication questions, your pain is not controlled, your pain is concerning for you and you have a fever Follow-up/Referrals: Grace Ramachandran MD, FACOG [Physician] - 11/16/24 (post-op appointment) Bo Moreira MD [Physician] - (we will call you with appointment date/time) Shelly Gore D.O. [Primary Care Provider] - (1 week ) Diet: Gluten Free Addtl Attending Provider Instructions: ACTIVITY RECOMMENDATIONS: * Avoid tampons, douching, hot tubs, pools, and intercourse until bleeding has stopped. * May shower as usual. * No strenuous activity for 24-48 hours. After 24-48 hours, you can do anything you feel like doing (driving and sports are okay). RETURN TO SCHOOL/WORK: * You may return to school or work after 24 hours unless specified by your physician. DIET: * Resume previous diet. MEDICATIONS: Resume previous medications unless instructed otherwise by your surgeon. Ibuprofen 200mg 2-3 tablets every 4-6 hours as needed --OR-- Aleve 2 tablets every 8-12 hours as needed for post-operative discomfort Medications are over the counter. Tylenol may be used if above medications are contraindicated or not preferred. Medication should be taken with food or milk. do not take on an empty stomach. SPECIAL CARE INSTRUCTIONS: * Check temperature twice daily for one week. Report any elevation over 101 degrees. * Call office if you experience increased pelvic pain or discomfort not relieved by pain medicine, if you have foul smelling vaginal discharge, if you have bleeding that is heavier than a normal menstrual flow. If you are changing a maxi pad every 1- 2 hours, this is too heavy. vaginal spotting is normal for 1-2 weeks. FOLLOW UP VISIT: Call your doctor's office at [phone] for a post-operative visit. Addtl Radiological Technologist Provider Instructions: In addition to addressing your heavy vaginal bleeding we also addressed your anemia & the episodes of dizziness/tachycardia. Due to severe iron deficiency anemia (ferritin level was 8 and discharge hemoglobin level was 8.3) you received 1 infusion of IV iron. It was discovered that your cortisol level was very low. Therefore on 11/03 we performed an adrenal gland test called a "cosyntropin stimulation test." This is a test to determine if you have adrenal gland insufficiency (see handout). The test was abnormal which may suggest you have adrenal insufficiency. The treatment of this condition is steroid replacement in the form of hydrocortisone tablets every day. I corresponded with [facility] and they would like to see you in follow-up for this possible diagnosis. In the meantime, starting 11/04/24, please take hydrocortisone as follows - * hydrocortisone 15mg (5mg tablet x 3) each morning * hydrocortisone 5mg (5mg tablet x 1) each afternoon If you do indeed have adrenal insufficiency you should feel much better on the hydrocortisone (less dizzy, less lightheaded, more energy, etc) - again see handout. Please continue the norethindrone per concrete rubber instructions. Take a dose at bedtime tonight, then again upon awakening in the morning tomorrow, then follow the instructions on the bottle once you seed cone picker the prescription. This is for your recent heavy vaginal bleeding. Please talk to your family doctor about getting additional infusions of IV iron (Venofer) as an outpatient. I would recommend seeing your family doctor within [address] [facility] if - * you have recurrent heavy vaginal bleeding * you have an episode of passing out * you have severe dizziness * you have chest pains or shortness of breath * any other concerns It was our pleasure to care for you! Pending Studies at Discharge: Yes Stand-Alone Forms: My [facility], Smoking Cessation Medications and DC Order Prescriptions: New norethindrone acetate 5 mg Tablet See Rx Instructions .ROUTE .COMPLEX Qty: 32 0RF Rx Instructions: 5 mg orally every 6hrs for 3days, every 8hrs for 3 days, every 12hr for 2 days and then daily until done. hydrocortisone 5 mg tablet 5 mg PO DIRECTED Qty: 60 0RF Rx Instructions: take 3 tablets (total 15mg) every morning & 1 tablet (5mg) every afternoon Continued alprazolam [Xanax] 0.25 mg tablet 0.25 mg PO BID PRN (Reason: anxiety) fexofenadine [Rosa Allergy] 60 mg tablet 60 mg PO Q12H PRN (Reason: Congestion) meclizine 12.5 mg tablet 12.5 mg PO TID PRN (Reason: dizziness) Qty: 20 0RF Active B12 Folate 1 unit 1 tab PO QAM Dimethyl Glycine 1 unit 1 tab PO QAM Gi Complete 1 unit 1 packet PO DAILY amlodipine 5 mg tablet 7.5 mg PO QPM Probzyme 2 tab PO UD PRN (Reason: Constipation) Relax 2 - 4 tab PO DAILY PRN (Reason: muscle spasms) Spm Liquid 1 tbsp PO QAM quercetin 1 tab PO QAM levothyroxine 50 mcg tablet 50 mcg PO QAM Rx Instructions: Take 1st thing in the morning on empty stomach with glass of water on empty stomach 30 min prior to any other oral intake. diphenhydramine HCl [Benadryl] 25 mg Capsule 25 mg PO TID PRN (Reason: histamine reaction) omega 4-vxe-bus-fish oil 900-1,400 mg Capsule,Delayed Release(Dr/Ec) 1 cap PO DAILY Excedrin Migraine 250-250-65 mg Tablet 1 tab PO Q6H PRN (Reason: HEADACHES) vitamin D3-vitamin K2 25 mcg (1,000 unit)-90 mcg Tablet,Disintegrating 1 tab PO QAM Rx Instructions: PT UNSURE OF STRENGTH Discharge Orders: Discharge Order (Routine); Ordered 11/03/24 Ordered By: Alexys Max/Other Patient Handouts: Secondary Adrenal Insufficiency, ED Anemia, Iron-Deficiency (Adult) Admission Data Admit Date/Time: 11/01/24 07:09 Attending Provider: Alexys Dumont Admit Provider: Susan Roe Primary Care Provider: Shelly Gore Other Providers: Susan Roe; Indira Burns Other Interventions: Discharge Summary Assessment (RN) Last Done: 11/03/24 17:03 Hospital Stay Data Consultations 10/30/24 23:46 ED Decision to Admit Stat 10/31/24 00:38 Consult Gynecology Routine Procedures Performed Operation Date: 11/01/24 13:10 Actual Procedures p Dilation and Curettage(Not Applicable) - Grace Ramachandran MD, FACOG s Hysteroscopy with use of Myosure, Myomectomy(Not Applicable) - Grace Ramachandran MD, FACOG Diagnostic Imagining Performed 10/30/24 17:25 CT cervical spine wo con Stat CT head/brain wo con Stat Pending Results Patient Have Any Pending Studies at Discharge: Yes Discharge Instructions Given to Patient (Per Discharging Provider) ACTIVITY RECOMMENDATIONS: * Avoid tampons, douching, hot tubs, pools, and intercourse until bleeding has stopped. * May shower as usual. * No strenuous activity for 24-48 hours. After 24-48 hours, you can do anything you feel like doing (driving and sports are okay). RETURN TO SCHOOL/WORK: * You may return to school or work after 24 hours unless specified by your physician. DIET: * Resume previous diet. MEDICATIONS: Resume previous medications unless instructed otherwise by your surgeon. Ibuprofen 200mg 2-3 tablets every 4-6 hours as needed --OR-- Aleve 2 tablets every 8-12 hours as needed for post-operative discomfort Medications are over the counter. Tylenol may be used if above medications are contraindicated or not preferred. Medication should be taken with food or milk. do not take on an empty stomach. SPECIAL CARE INSTRUCTIONS: * Check temperature twice daily for one week. Report any elevation over 101 degrees. * Call office if you experience increased pelvic pain or discomfort not re lieved by pain medicine, if you have foul smelling vaginal discharge, if you have bleeding that is heavier than a normal menstrual flow. If you are changing a maxi pad every 1- 2 hours, this is too heavy. vaginal spotting is normal for 1-2 weeks. FOLLOW UP VISIT: Call your doctor's office at [phone] for a post-operative visit. Coding Diagnoses Pre-syncope R55 Sinus tachycardia R00.0 Abnormal vaginal bleeding N93.9 Acute blood loss anemia D62 Hypertension I10 Hypothyroidism E03.9 Pre-diabetes R73.03
[2024-11-03] MEDS ORDERED: NORETHINDRONE 5 MG TAB PO SCH ×2 (17:15)
[2024-11-03] MEDS: NORETHINDRONE 5 MG TAB PO SCH (17:26)
== END 2024-11-03 18:14 | disposition home or self-care (01) | DRG 742 ==
LOC: ED 16:17 → EDINP 16:17 → SUATTDRO 10-31 00:38 → 2W 10-31 02:50 → SUATTDRO 11-01 07:09 → 4E1 11-01 16:26 → 2W 11-02 18:20